=== PATIENT | female | born 1965 | race Caucasian/White ===

== ENCOUNTER 2020-07-25 10:10 | Outpatient (REF) | payer BC, SELFPAY ==
[2020-07-25 11:18] LABS: Estimated Average Glucose 137 mg/dL; Hemoglobin A1c % 6.4 %
[2020-07-25 11:29] LABS: Alanine Aminotransferase 25 U/L (0-31); Albumin Level 4.6 g/dL (3.5-5.0); Alkaline Phosphatase 87 U/L (39-117); Anion Gap 13 (12-20); Aspartate Amino Transferase 19 U/L (5-31); Bilirubin Total 0.6 mg/dL (0.0-1.0); Blood Urea Nitrogen 20 mg/dL (9-16); Calcium 9.8 mg/dL (8.4-10.2); Carbon Dioxide 29 mmol/L (22-29); Chloride 106 mmol/L (96-108); Cholesterol 171 mg/dL; Estimated Glomerular Filt Rate 50; Glucose Fasting 127 mg/dL (60-99); HDL Cholesterol 45 mg/dL; LDL Cholesterol Calculated 97 mg/dl; Potassium 4.5 mmol/l (3.3-5.1); Sodium 143 mmol/L (135-145); Total Protein 7.5 g/dL (6.5-8.0); Triglycerides 146 mg/dL
[2020-07-25 11:41] LABS: Glucose Urine UA NEG (NEG); Leukocyte Esterase Urine 1+ (NEG); Nitrite Urine NEG (NEG); PH 5.5 (5.0-8.0); Specific Gravity - Urine >= 1.030 (1.005-1.025); Urine Blood 1+ (NEG); Urine Ketones NEG (NEG); Urine Protein TRACE MG/DL (NEG-TRACE)
[2020-07-25 11:43] LABS: Appearance Urine HAZY; Color Urine YELLOW
[2020-07-25 11:50] LABS: Thyroid Stimulating Hormone 1.18 mIU/mL (0.32-4.0)
[2020-07-25 11:54] LABS: Calcium Oxalate Crystals Urine 1+ /LPF; Mucus Urine 1+ /LPF; Renal Epithelial Cells Urine 1+ /LPF; Squamous Epithelial Cell Urine 1+ /LPF; WBC Urine TNTC /HPF (0-4)
[2020-07-25 12:00] LABS: Creatinine Urine 319.76 mg/dL; Microalbum/Creatinine Ratio Ur 23.1 ug/mg cr
== END 2020-07-25 10:11 | disposition home or self-care (01) ==
LOC: HO.LAB 10:10
PROVIDERS: PCP Internal Medicine; Visit Provider Internal Medicine
DX: I10 Essential (primary) hypertension (principal); E11.9 Type 2 diabetes mellitus without complications; E78.2 Mixed hyperlipidemia; R31.21 Asymptomatic microscopic hematuria
CPT/HCPCS: 80053; 80061; 81001; 81003; 82043; 83036; 84443

== ENCOUNTER 2020-07-27 10:59 | Day surgery (SDC) | payer BC, SELFPAY ==
--- NOTE | 2020-07-24 11:59 | P.CONAN_ITS ---
Documented by User: Renetta Killian 07/24/20 12:03 HPI - Anesthesia Eval Consult details Narrative: 54yo F for colonoscopy: screening [facility] Past Medical History Medical History (Updated 07/23/20 @ 16:09 by Pat Johns) Colitis Fatty liver Hemangioma Liver cyst Microscopic hematuria Pericardial effusion Right bundle branch block Thyroid nodule Surgical History Surgical History (Updated 07/24/20 @ 12:01 by Renetta Killian) Hx of colonoscopy S/P pericardial window creation Social History Social History Smoking Status: Never smoker Second Hand Smoke Exposure: No Use of substances other than those prescribed or required for medical reasons: No Advance Directives: No Advance Directives Information Provided: Yes Advance Directives on File: No Meds Allergies Allergy/AdvReac Type Severity Reaction Status Date / Time No Known Allergies Allergy Unverified 06/18/20 15:15 Home Medications Medication Instructions Recorded Confirmed Type atorvastatin 1 tab PO DAILY 07/23/20 07/23/20 History diltiazem HCl 1 cap PO DAILY 07/23/20 07/23/20 History metformin 1 tab PO BEDTIME 07/23/20 07/23/20 History olmesartan 1 tab PO DAILY 07/23/20 07/23/20 History Exam Exam Date and Time: July 24, 2020 1159 Pertinent Lab Results Pertinent Lab Results: Laboratory Tests 11/16/18 09/16/19 04/15/20 11:00 08:00 11:20 WBC 5.3 Hgb 15.9 Hct 46.8 Plt Count 250 D Sodium 139 Potassium 4.4 Chloride 104 BUN 20 H Creatinine 1.03 Narrative Narrative: EKG 12/2019 NSR ECHO 10/2018: Nml LV sys func, EF 65-70%, impaired relax, mild MR Documented by User: Peter Velazquez 07/27/20 12:08 [facility] Past Medical History Medical History (Updated 07/23/20 @ 16:09 by Pat Johns) Colitis Fatty liver Hemangioma Liver cyst Microscopic hematuria Pericardial effusion Right bundle branch block Thyroid nodule Surgical History Surgical History (Updated 07/24/20 @ 12:01 by Renetta Killian) Hx of colonoscopy S/P pericardial window creation Social History Social History Smoking Status: Never smoker Second Hand Smoke Exposure: No Use of substances other than those prescribed or required for medical reasons: No Advance Directives: No Advance Directives Information Provided: Yes Advance Directives on File: No Meds Allergies Allergy/AdvReac Type Severity Reaction Status Date / Time No Known Allergies Allergy Unverified 06/18/20 15:15 Home Medications Medication Instructions Recorded Confirmed Type atorvastatin 1 tab PO DAILY 07/23/20 07/23/20 History diltiazem HCl 1 cap PO DAILY 07/23/20 07/23/20 History metformin 1 tab PO BEDTIME 07/23/20 07/23/20 History olmesartan 1 tab PO DAILY 07/23/20 07/23/20 History Exam Airway Mallampati Class: II TM Dist: >3cm Neck ROM: Full Heart: RRR Assessment and Plan Assessment Anesthesia Assessment: Anesthesia Plan Discussed Final Anesthetic Review NPO: Yes ASA Class: III Anesthetic Plan Anesthetic Plan: MAC:
[2020-07-24 14:57] VITALS: BMI 30.8
[2020-07-27 11:24] LABS: Glucose, Whole Blood 105 mg/dL (60-115)
[2020-07-27 11:27] VITALS: BP 147/64; PULSE 77; RESP 16; TEMP 36.4; O2SAT 100
[2020-07-27] MEDS: Lactated Ringers 1,000 ML 100 ML IVCONT (11:42)
[2020-07-27 13:18] VITALS: BP 123/67; PULSE 69; RESP 18; TEMP 36.1; O2SAT 99
--- NOTE | 2020-07-27 13:18 | PM.OP ---
Brief Operative Note Date of procedure: 07/27/20 Pre-op diagnosis: Ulcerative Proctitis, Screening Post-op diagnosis: same Surgeon: Samir Arriola Anesthesia: MAC Estimated blood loss (mL): 6.0 Pathology: other (A. Ascending colon B. Transverse colon C. Descending colon D. Sigmoid colon E. Rectum) Condition: stable Disposition: PACU
[2020-07-27 13:25] VITALS: BP 112/69; PULSE 68; RESP 18; TEMP 36.1; O2SAT 99
--- NOTE | 2020-07-27 13:40 | OP_ITS ---
SURGEON: Samir Arriola MD INDICATIONS: The patient presents for evaluation of underlying history of ulcerative colitis and colorectal cancer screening. Full consent has been obtained from her for this, including risks of bleeding and perforation. PREOPERATIVE DIAGNOSIS: Colorectal cancer screening. POSTOPERATIVE DIAGNOSIS: PROCEDURE PERFORMED: Colonoscopy to cecum and terminal ileum with biopsies. ESTIMATED BLOOD LOSS: COMPLICATIONS: ANESTHESIA: Monitored anesthesia care. ASSISTANTS: SPECIMENS: POSTOPERATIVE DIAGNOSES: Colorectal cancer screening, rule out dysplasia, small internal hemorrhoids. DESCRIPTION OF PROCEDURE: The patient was placed in the left lateral decubitus position. The digital rectal exam revealed no abnormalities. The Olympus video pediatric colonoscope was entered into the rectum and advanced to the cecum with the assistance of abdominal wall pressure. Once in the cecum, I did identify normal-appearing cecal pouch with appendiceal orifice and a normal-appearing ileocecal valve. The terminal ileum was cannulated and appeared normal. Scope was withdrawn back in the colon. The entire cecum and ileocecal valve appeared normal. The scope was then slowly withdrawn assessing all mucosal surfaces carefully. Preparation was excellent. I did not visualize any sign of polyps, colitis, nor angiodysplasia. Random biopsies were obtained in the ascending colon, transverse colon, descending colon, sigmoid colon, and rectum. In the rectum, scope was retroflexed visualizing small internal hemorrhoids, but no other pathology. There was no sign of any active proctitis. The scope was straightened out and withdrawn from the patient. She tolerated procedure well and was returned to the recovery area in stable condition. IMPRESSION: 1. History of ulcerative colitis, rule out dysplasia. 2. Small internal hemorrhoids. PLAN: The results of the biopsy will be checked. I would recommend a repeat colonoscopy in 5 years for further screening. She will otherwise see me on a p.r.n. basis. At this point, she is not on any medication for the ulcerative colitis, but if things flare up, she knows to call me for evaluation. In the past, she had been on mesalamine suppositories with good relief of the proctitis. MD LELE Jerez/KIERAN / [id number]
--- NOTE | 2020-07-27 13:44 | HO.POSTANES ---
Post Anesthesia Evaluation Post Anesthesia Evaluation Vital Signs: Vital Signs Temp Pulse Resp BP Pulse Ox 07/27/20 13:25 97 F 68 18 112/69 99 07/27/20 13:18 96.9 F 69 18 123/67 99 07/27/20 11:27 97.6 F 77 16 147/64 H 100 Anesthesia: Monitored Mental Status: Awake Pain Control: Satisfactory Nausea/Vomiting: None Hydration: Adequate Anesthesia-Related Issues: No Anes. Related Issues
== END 2020-07-27 14:30 | disposition home or self-care (01) ==
PROVIDERS: PCP Internal Medicine; Visit Provider Internal Medicine
PROC: 0DJD8ZZ Inspection of Lower Intestinal Tract, Via Natural or Artificial Opening Endoscopic (ICD-10-PCS; CPT 45378; principal; 2020-07-27 12:00)
DX: Z12.11 Encounter for screening for malignant neoplasm of colon (principal); K62.89 Other specified diseases of anus and rectum; K52.9 Noninfective gastroenteritis and colitis, unspecified; K64.8 Other hemorrhoids; E11.9 Type 2 diabetes mellitus without complications; I10 Essential (primary) hypertension; Z79.84 Long term (current) use of oral hypoglycemic drugs; Z79.899 Other long term (current) drug therapy
CPT/HCPCS: 45380; 82947; 88305

== ENCOUNTER 2020-09-05 09:08 | Outpatient (REF) | payer BC, SELFPAY ==
--- NOTE | 2020-09-05 09:10 | MM_ITS ---
EXAMINATION: MM SCREENING DIGITAL BREAST TOMOSYNTHESIS, BILATERAL CLINICAL INFORMATION: Screening. Asymptomatic. The lifetime risk of breast cancer based on the Tyrer-Cuzick Model is 9.7%. COMPARISON: Mammography: August 31, 2019 and studies dating back to October 30, 2008 TECHNIQUE: Digital breast tomosynthesis is performed in both the craniocaudal and mediolateral oblique views along with computer-aided detection (CAD). Synthesized 2D images are generated from the tomosynthesis. FINDINGS: The breasts are almost entirely fatty (ACR BI-RADS breast composition Category a). There are no significant masses, abnormal calcifications, or other abnormalities. MM/MM tomosynthesis screening BI IMPRESSION: There are no significant changes from prior study. ASSESSMENT: BI-RADS 1: Negative RECOMMENDATION: Routine annual mammography screening. This patient's information was entered into a reminder system with a target due date for their next mammogram.
== END 2020-09-05 09:09 | disposition home or self-care (01) ==
LOC: HO.MAMMO 09:08
PROVIDERS: Visit Provider Internal Medicine
DX: Z12.31 Encounter for screening mammogram for malignant neoplasm of breast (principal)
CPT/HCPCS: 77063; 77067

== ENCOUNTER → 2020-12-31 09:37 | Outpatient (BNVA) | payer BC, SELFPAY | PROVIDERS: PCP Internal Medicine; Visit Provider Internal Medicine Cardiovascular Disease | DX: I30.0 Acute nonspecific idiopathic pericarditis (principal); I10 Essential (primary) hypertension | CPT/HCPCS: 93005 ==

== ENCOUNTER 2021-01-28 09:07 | Outpatient (REF) | payer BC, SELFPAY ==
--- NOTE | ~2021-01-28 | XR_ITS ---
EXAMINATION: XR HIP, LEFT CLINICAL INFORMATION: Pain COMPARISON: None TECHNIQUE: Two views of the left hip. FINDINGS: Bone alignment is normal. No fracture or dislocation is seen. There is moderate arthritis of the left hip joint with joint space narrowing, osteophyte formation and some subchondral cyst formation. Soft tissues are unremarkable. XR/XR hip LT min 2V IMPRESSION: Moderate left hip arthritis.
[2021-01-28 11:35] LABS: Estimated Average Glucose 131 mg/dL; Hemoglobin A1c % 6.2 %
[2021-01-28 12:03] LABS: Creatinine Urine 229.71 mg/dL
[2021-01-28 12:15] LABS: Alanine Aminotransferase 25 U/L (0-31); Albumin Level 4.4 g/dL (3.5-5.0); Alkaline Phosphatase 75 U/L (39-117); Anion Gap 11 (12-20); Aspartate Amino Transferase 19 U/L (5-31); Bilirubin Total 0.5 mg/dL (0.0-1.0); Blood Urea Nitrogen 23 mg/dL (9-16); Calcium 9.4 mg/dL (8.4-10.2); Carbon Dioxide 25 mmol/L (22-29); Chloride 109 mmol/L (96-108); Cholesterol 135 mg/dL; Estimated Glomerular Filt Rate 58; Glucose Fasting 125 mg/dL (60-99); HDL Cholesterol 48 mg/dL; LDL Cholesterol Calculated 76 mg/dl; Potassium 4.2 mmol/L (3.3-5.1); Sodium 141 mmol/L (135-145); Total Protein 7.1 g/dL (6.5-8.0); Triglycerides 59 mg/dL
== END 2021-01-28 09:08 | disposition home or self-care (01) ==
LOC: HO.HMGCX 09:07
PROVIDERS: PCP Internal Medicine; Visit Provider Internal Medicine
DX: Z00.00 Encounter for general adult medical examination without abnormal findings (principal); M25.552 Pain in left hip; E11.9 Type 2 diabetes mellitus without complications; E78.5 Hyperlipidemia, unspecified; I10 Essential (primary) hypertension
CPT/HCPCS: 36415; 73502; 80053; 80061; 82043; 83036; 87086

== ENCOUNTER 2021-11-24 08:10 | Outpatient (REF) | payer OTHER, SELFPAY ==
[2021-11-24 11:46] LABS: Alanine Aminotransferase 27 U/L (0-31); Albumin Level 4.4 g/dL (3.5-5.0); Alkaline Phosphatase 70 U/L (39-117); Anion Gap 13 (12-20); Aspartate Amino Transferase 18 U/L (5-31); Bilirubin Total 0.5 mg/dL (0.0-1.0); Blood Urea Nitrogen 17 mg/dL (9-16); Carbon Dioxide 24 mmol/L (22-29); Chloride 107 mmol/L (96-108); Cholesterol 166 mg/dL; Estimated Glomerular Filt Rate 54; Glucose Fasting 130 mg/dL (60-99); HDL Cholesterol 50 mg/dL; LDL Cholesterol Calculated 88 mg/dl; Potassium 4.5 mmol/L (3.3-5.1); Sodium 139 mmol/L (135-145); Total Protein 7.3 g/dL (6.5-8.0); Triglycerides 140 mg/dL
[2021-11-24 12:11] LABS: Creatinine Urine 146.11 mg/dL
[2021-11-24 12:16] LABS: Estimated Average Glucose 148 mg/dL; Hemoglobin A1c % 6.8 %
== END 2021-11-24 08:11 | disposition home or self-care (01) ==
LOC: HO.HMGCLDS 08:10
PROVIDERS: Visit Provider Internal Medicine
DX: E11.9 Type 2 diabetes mellitus without complications (principal); E78.5 Hyperlipidemia, unspecified; I10 Essential (primary) hypertension
CPT/HCPCS: 36415; 80053; 80061; 82043; 83036

== ENCOUNTER 2021-12-02 15:01 | Outpatient (REF) | payer OTHER, SELFPAY ==
--- NOTE | ~2021-12-02 | MM_ITS ---
EXAMINATION: MM SCREENING DIGITAL BREAST TOMOSYNTHESIS, BILATERAL CLINICAL INFORMATION: Screening. Asymptomatic. The lifetime risk of breast cancer based on the Tyrer-Cuzick Model is 9%. COMPARISON: Mammography: 09/05/2020, 08/31/2019, 07/25/2018, 07/01/2017, 10/30/2008 TECHNIQUE: Digital breast tomosynthesis is performed in both the craniocaudal and mediolateral oblique views along with computer-aided detection (CAD). Synthesized 2D images are generated from the tomosynthesis. FINDINGS: There are scattered areas of fibroglandular density (ACR BI-RADS breast composition Category b). Breast tissue composition borders on predominantly fatty. Background stromal and fibroglandular densities right breast are stable. There is subtle nodular asymmetry anterior to mid 2:30 o'clock left breast just under 5 mm more conspicuous when compared with prior study. Patient will be recalled for additional imaging. Neither breast shows abnormal calcifications. No architectural abnormality. The axilla and skin contours are unremarkable. MM/MM tomosynthesis screening BI IMPRESSION: 1. Left: Small subtle nodular asymmetry to 30 o'clock position just under 5 mm. 2. Right: No mammographic evidence of malignancy. ASSESSMENT: BI-RADS 0: Incomplete - Need Additional Imaging Evaluation RECOMMENDATION: 1. Additional views of the left breast (spot CC, spot ML). 2. Targeted ultrasound if warranted after review of the additional views. 3. Radiology department staff will contact the patient for additional imaging. This patient's information was entered into a reminder system with a target due date for their next mammogram.
== END 2021-12-02 15:02 | disposition home or self-care (01) ==
LOC: HO.MAMMO 15:01
PROVIDERS: Visit Provider Internal Medicine
DX: Z12.31 Encounter for screening mammogram for malignant neoplasm of breast (principal)
CPT/HCPCS: 77063; 77067

== ENCOUNTER 2021-12-16 08:50 | Outpatient (REF) | payer OTHER, SELFPAY ==
--- NOTE | ~2021-12-16 | XR_ITS ---
EXAMINATION: XR pelvis 1-2V CLINICAL INFORMATION: Reason for Exam M25.559 - Pain in unspecified hip COMPARISON: Hip radiographs 01/28/2021 TECHNIQUE: One view of the pelvis XR/XR pelvis 1-2V FINDINGS/IMPRESSION: No acute fracture or dislocation. Moderate degenerative changes of the left hip with loss of joint space and degenerative spurring similar to prior. Right hip joint space is maintained. Ossified phleboliths in the pelvis. Soft tissues are unremarkable.
== END 2021-12-16 08:51 | disposition home or self-care (01) ==
LOC: HO.HOSX 08:50
PROVIDERS: Visit Provider Orthopaedic Surgery
DX: M16.12 Unilateral primary osteoarthritis, left hip (principal); Z79.899 Other long term (current) drug therapy
CPT/HCPCS: 72170

== ENCOUNTER 2021-12-21 14:48 | Outpatient (REF) | payer OTHER, SELFPAY ==
--- NOTE | ~2021-12-21 | US_ITS ---
EXAMINATION: US DIAGNOSTIC ULTRASOUND BREAST, LEFT CLINICAL INFORMATION: 2 small adjacent nodules lateral aspect left breast. COMPARISON: Mammography of same day and dating back to July 01, 2017. TECHNIQUE: Ultrasound of the breast is performed with real-time devine scale imaging and color Doppler. FINDINGS: Targeted ultrasound of the left breast demonstrates at the 3:00 position approximately 4 cm from nipple 2 directly adjacent and contiguous well-circumscribed avascular structures with smooth back orantes and through sound transmission likely representing small cysts. These correspond in size and location to the mammographic finding. Results are discussed with the patient at time of visit. US/US breast LT limited IMPRESSION: Circumscribed densities about the lateral aspect of the left breast represent cysts on ultrasound. ASSESSMENT: BI-RADS 2: Benign RECOMMENDATION: Routine annual mammography screening due in 12 months. .
--- NOTE | ~2021-12-21 | MM_ITS ---
EXAMINATION: MM DIAGNOSTIC DIGITAL BREAST TOMOSYNTHESIS, LEFT US TARGETED LEFT BREAST ULTRASOUND CLINICAL INFORMATION: Subtle nodular density lateral aspect of the left breast. COMPARISON: Mammography: 12/02/2021 and studies dating back to 07/01/2017. TECHNIQUE: Digital breast tomosynthesis is performed. 2D images are generated from the tomosynthesis. The following views are obtained: Spot compression craniocaudal and 90 degree mediolateral. FINDINGS: There are scattered areas of fibroglandular density (ACR BI-RADS breast composition Category b). Supplementary films demonstrate 2 adjacent well-circumscribed densities one measuring approximately 5 mm in diameter and the other approximately 3 mm in diameter. No spiculated masses or associated microcalcifications are seen. Targeted ultrasound of the left breast demonstrates at the 3 o'clock position approximately 4 cm from nipple 2 directly adjacent and contiguous well-circumscribed avascular structures with smooth back orantes and increased through sound transmission likely representing small cysts. These correspond in size and location to the mammographic finding. Results are discussed with the patient at time of visit. MM/MM tomosynthesis added views L IMPRESSION: Circumscribed densities about the lateral aspect of the left breast represent cysts on ultrasound. ASSESSMENT: BI-RADS 2: Benign. RECOMMENDATION: Routine annual mammography screening due in 12 months. This patient's information was entered into a reminder system with a target due date for their next mammogram.
== END 2021-12-21 14:49 | disposition home or self-care (01) ==
LOC: HO.MAMMO 14:48
PROVIDERS: Visit Provider Internal Medicine
DX: N64.89 Other specified disorders of breast (principal)
CPT/HCPCS: 76642; 77061; 77065

== ENCOUNTER 2022-02-17 09:00 | Outpatient (RCR) | payer OTHER, SELFPAY ==
--- NOTE | 2022-01-26 09:09 | MHC.PT.EP ---
[facility] [place] Office [place] Office [place] Office [address] Aileen Narayanan [address] [phone] F: [phone] F: [phone] F: [phone] F: [phone] Physical Therapy Plan of Care Date of Evaluation: Date of Surgery: Diagnosis: OA L hip Assessment: 56 y/o F referred to PT with L hip OA. 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 S/s consistent with hip OA secondary to decreased hip A/PROM (especially hip IR, extension, and flexion), decreased hip strength, decreased muscle length of hip flexors/HS, increased pain, altered SI mechanics, and impaired gait pattern. Recommend PT 2x/week for 5 weeks to address impairments, implement HEP, and optimize functional mobility. Frequency and Duration: The patient will be seen 2x/week for 5 weeks Short Term Goals: 3 weeks 1. I with HEP 2. Pt will be able to perform SLR 3x10 without shakiness and pain < 3/10 3. Pt will improve L hip IR by 5 * Correction Goals: 5 weeks 1. I with HEP an d self management of sx 2. Pt will be able to walk > 25 min without limp and pain < 3/10 Treatment Plan: Modalities to reduce pain, spasms and effusion. Manual therapy to restore motion and function. Therapeutic exercise to improve strength and flexibility. Neuromuscular re-education for posture and balance. Therapeutic activities to return to functional activities of daily living. Electronically signed by: Jody Frazier PT Please sign and return to therapist. Thank you for your referral.
--- NOTE | 2022-04-20 08:33 | MHC.PT.DC ---
[facility] [place] Office [place] Office [place] Office [address] Aileen Narayanan [address] [phone] F: [phone] F: [phone] F: [phone] F: [phone] Physical Therapy Discharge Report Diagnosis: OA L hip Date of Surgery: Date of Evaluation: 01/26/22 Date of Discharge: 04/20/22 Treatments to Date: 5 Cancellations to Date: 0 No Shows to Date: 0 Discharge Status: Independent with HEP Discharge Summary: Pt did not f/u with final visits. At time of last attended visit, she continued to have weaker L gluteal activation, altered gait mechanics, and pain. She was I with HEP. She is d/c at this time secondary to not f/u with further visits. Electronically signed by: Jody Frazier PT Please sign and return to therapist. Thank you for your referral.
== END 2022-04-20 08:33 | disposition home or self-care (01) ==
LOC: HO.PT 09:00
PROVIDERS: PCP Internal Medicine; Visit Provider Orthopaedic Surgery
DX: M16.12 Unilateral primary osteoarthritis, left hip (principal)
CPT/HCPCS: 97110; 97140; 97161; 97530

== ENCOUNTER → 2022-02-17 10:14 | Outpatient (BNVA) | payer OTHER, SELFPAY | PROVIDERS: PCP Internal Medicine; Visit Provider Orthopaedic Surgery | DX: M16.12 Unilateral primary osteoarthritis, left hip (principal) ==

== ENCOUNTER → 2022-03-09 14:51 | Outpatient (BNVA) | payer OTHER, SELFPAY | PROVIDERS: PCP Internal Medicine; Visit Provider Internal Medicine Cardiovascular Disease | DX: I30.0 Acute nonspecific idiopathic pericarditis (principal); I10 Essential (primary) hypertension | CPT/HCPCS: 93005 ==

== ENCOUNTER 2022-04-18 05:57 | Outpatient (REF) | payer OTHER, SELFPAY ==
[2022-04-18 07:26] LABS: Hematocrit 38.5 % (37.0-47.0); Hemoglobin 12.6 g/dl (12.0-16.0); Mean Corpuscular HGB Conc 32.7 g/dl (31.0-35.0); Mean Corpuscular Hemoglobin 31.2 pg (27.0-33.0); Mean Corpuscular Volume 95.3 fL (80.0-98.0); Mean Platelet Volume 10.6 fL (9.4-12.3); Platelet Count 293 X10*3/uL (160-400); Red Blood Count 4.04 X10*6/uL (4.20-5.50); Red Cell Distribution Width 12.6 % (11.0-16.0); White Blood Count 7.9 X10*3/uL (4.8-10.8)
[2022-04-18 07:41] LABS: Estimated Average Glucose 131 mg/dL; Hemoglobin A1C 149.3436 umol/L; Hemoglobin A1c % 6.2 %
[2022-04-18 07:51] LABS: Alanine Aminotransferase 32 U/L (0-31); Albumin Level 4.5 g/dL (3.5-5.0); Alkaline Phosphatase 62 U/L (39-117); Anion Gap 13 (12-20); Aspartate Amino Transferase 23 U/L (5-31); Bilirubin Total 0.3 mg/dL (0.0-1.0); Blood Urea Nitrogen 19 mg/dL (9-16); Carbon Dioxide 25 mmol/L (22-29); Chloride 104 mmol/L (96-108); Cholesterol 162 mg/dL; Estimated Glomerular Filt Rate > 60; Glucose Fasting 87 mg/dL (60-99); HDL Cholesterol 42 mg/dL; LDL Cholesterol Calculated 87 mg/dl; Potassium 4.4 mmol/L (3.3-5.1); Sodium 138 mmol/L (135-145); Total Protein 7.1 g/dL (6.5-8.0); Triglycerides 166 mg/dL
[2022-04-18 08:17] LABS: TSH reflex Free T4 2.65 uIU/mL (0.32-4.0)
[2022-04-18 10:21] LABS: Creatinine Urine 25.72 mg/dL; Microalbum/Creatinine Ratio Ur 38.8 ug/mg cr
[2022-04-20 14:18] LABS: CRP High Sensitivity 1.5 mg/L
== END 2022-04-18 05:58 | disposition home or self-care (01) ==
LOC: HO.LAB 05:57
PROVIDERS: Absent Provider Internal Medicine Cardiovascular Disease; PCP Internal Medicine; Visit Provider Internal Medicine
DX: Z00.00 Encounter for general adult medical examination without abnormal findings (principal); E78.5 Hyperlipidemia, unspecified; I10 Essential (primary) hypertension; E11.9 Type 2 diabetes mellitus without complications
CPT/HCPCS: 36415; 80053; 80061; 82043; 83036; 84443; 85027; 86141

== ENCOUNTER 2022-07-13 06:16 | Outpatient (REF) | payer OTHER, SELFPAY ==
[2022-07-13 11:30] LABS: Estimated Average Glucose 140 mg/dL; Hemoglobin A1c % 6.5 %
[2022-07-13 11:49] LABS: Alanine Aminotransferase 29 U/L (0-31); Albumin Level 4.4 g/dL (3.5-5.0); Alkaline Phosphatase 75 U/L (39-117); Anion Gap 15 (12-20); Aspartate Amino Transferase 21 U/L (5-31); Bilirubin Total 0.4 mg/dL (0.0-1.0); Blood Urea Nitrogen 19 mg/dL (9-16); Calcium 9.7 mg/dL (8.4-10.2); Carbon Dioxide 25 mmol/L (22-29); Chloride 107 mmol/L (96-108); Cholesterol 162 mg/dL; Estimated Glomerular Filt Rate 58; Glucose Fasting 103 mg/dL (60-99); HDL Cholesterol 44 mg/dL; LDL Cholesterol Calculated 73 mg/dl; Potassium 4.4 mmol/L (3.3-5.1); Sodium 143 mmol/L (135-145); Total Protein 7.1 g/dL (6.5-8.0); Triglycerides 227 mg/dL
[2022-07-13 12:08] LABS: Creatinine Urine 127.63 mg/dL; Microalbum/Creatinine Ratio Ur 10.1 ug/mg cr
== END 2022-07-13 06:17 | disposition home or self-care (01) ==
LOC: HO.HMGCLDS 06:16
PROVIDERS: PCP Internal Medicine; Visit Provider Internal Medicine
DX: I10 Essential (primary) hypertension (principal); E11.9 Type 2 diabetes mellitus without complications; E78.5 Hyperlipidemia, unspecified
CPT/HCPCS: 36415; 80053; 80061; 82043; 83036

== ENCOUNTER 2022-11-18 06:04 | Outpatient (REF) | payer OTHER, SELFPAY ==
[2022-11-18 12:14] LABS: Estimated Average Glucose 137 mg/dL; Hemoglobin A1c % 6.4 %; Total Hemoglobin (HGBA1C) 3539.0667 umol/L
[2022-11-18 12:37] LABS: Creatinine Urine 175.61 mg/dL; Microalbum/Creatinine Ratio Ur 10.8 ug/mg cr
[2022-11-18 12:44] LABS: Alanine Aminotransferase 24 U/L (0-31); Albumin Level 4.1 g/dL (3.5-5.0); Alkaline Phosphatase 61 U/L (39-117); Anion Gap 15 (12-20); Aspartate Amino Transferase 19 U/L (5-31); Bilirubin Total 0.4 mg/dL (0.0-1.0); Blood Urea Nitrogen 22 mg/dL (9-16); Calcium 9.6 mg/dL (8.4-10.2); Carbon Dioxide 24 mmol/L (22-29); Chloride 108 mmol/L (96-108); Cholesterol 143 mg/dL; Estimated Glomerular Filt Rate > 60; Glucose Fasting 86 mg/dL (60-99); HDL Cholesterol 47 mg/dL; LDL Cholesterol Calculated 74 mg/dl; Potassium 4.6 mmol/L (3.3-5.1); Sodium 142 mmol/L (135-145); Total Protein 6.6 g/dL (6.5-8.0); Triglycerides 113 mg/dL
== END 2022-11-18 06:05 | disposition home or self-care (01) ==
LOC: HO.HMGCLDS 06:04
PROVIDERS: PCP Internal Medicine; Visit Provider Internal Medicine
DX: E11.9 Type 2 diabetes mellitus without complications (principal); I10 Essential (primary) hypertension; E78.5 Hyperlipidemia, unspecified
CPT/HCPCS: 36415; 80053; 80061; 82043; 83036

== ENCOUNTER 2022-12-12 07:14 | Outpatient (REF) | payer OTHER, SELFPAY ==
--- NOTE | ~2022-12-12 | MM_ITS ---
EXAMINATION: MM SCREENING DIGITAL BREAST TOMOSYNTHESIS, BILATERAL CLINICAL INFORMATION: Screening. Asymptomatic. The lifetime risk of breast cancer based on the Tyrer-Cuzick Model is 9%. COMPARISON: Mammography: 12/21/2021, 12/02/2021, 09/05/2020, 08/31/2019; left breast ultrasound 12/21/2021. TECHNIQUE: Digital breast tomosynthesis is performed in both the craniocaudal and mediolateral oblique views along with computer-aided detection (CAD). Synthesized 2D images are generated from the tomosynthesis. FINDINGS: There are scattered areas of fibroglandular density (ACR BI-RADS breast composition Category b). Breast tissue composition borders on predominantly fatty. Background stromal and fibroglandular densities are similar to prior studies. There is small nodularity anterior lateral left breast again seen consistent with cysts on targeted ultrasound. There is no developing density or architectural abnormality. No abnormal calcifications. The axilla and skin contours are unremarkable. MM/MM tomosynthesis screening BI IMPRESSION: No mammographic evidence of malignancy. ASSESSMENT: BI-RADS 2: Benign RECOMMENDATION: Routine annual mammography screening. This patient's information was entered into a reminder system with a target due date for their next mammogram.
== END 2022-12-12 07:15 | disposition home or self-care (01) ==
LOC: HO.MAMMO 07:14
PROVIDERS: Visit Provider Internal Medicine
DX: Z12.31 Encounter for screening mammogram for malignant neoplasm of breast (principal)
CPT/HCPCS: 77063; 77067

== ENCOUNTER → 2023-04-05 10:04 | Outpatient (BNVA) | payer OTHER, SELFPAY | PROVIDERS: Visit Provider Internal Medicine Cardiovascular Disease | DX: I30.0 Acute nonspecific idiopathic pericarditis (principal) | CPT/HCPCS: 93005 ==

== ENCOUNTER 2023-06-19 06:06 | Outpatient (REF) | payer OTHER, SELFPAY ==
[2023-06-19 11:15] LABS: MANUAL DIFF FLAG NO
[2023-06-19 11:28] LABS: Basophils Absolute Auto 0.1 X10*3/uL (0.0-0.2); Basophils Percent Auto 0.7 % (0-2); Eosinophils Absolute Auto 0.2 X10*3/uL (0.0-0.4); Eosinophils Percent Auto 3.3 % (0-4); Hematocrit 41.7 % (37.0-47.0); Hemoglobin 13.3 g/dl (12.0-16.0); Imm Gran Abs Auto 0.02 X10*3/uL (0.00-0.03); Imm Gran Pct Auto 0.3 % (0.0-0.4); Lymphocytes Absolute Auto 3.1 X10*3/uL (1.2-4.9); Lymphocytes Percent Auto 42.8 % (20-40); Mean Corpuscular HGB Conc 31.9 g/dl (31.0-35.0); Mean Corpuscular Hemoglobin 31.1 pg (27.0-33.0); Mean Corpuscular Volume 97.7 fL (80.0-98.0); Mean Platelet Volume 11.1 fL (9.4-12.3); Monocytes Absolute Auto 0.6 X10*3/uL (0.1-1.2); Monocytes Percent Auto 7.8 % (2-11); Neutrophils Absolute Auto 3.3 x10*3/uL (2.0-8.3); Neutrophils Percent Auto 45.1 % (45-73); Platelet Count 331 X10*3/uL (160-400); Red Blood Count 4.27 X10*6/uL (4.20-5.50); Red Cell Distribution Width 12.5 % (11.0-16.0); White Blood Count 7.3 X10*3/uL (4.8-10.8)
[2023-06-19 11:44] LABS: Estimated Average Glucose 128 mg/dL; Hemoglobin A1c % 6.1 % (<6.0)
[2023-06-19 11:48] LABS: Alanine Aminotransferase 26 U/L (0-31); Albumin Level 4.3 g/dL (3.5-5.0); Alkaline Phosphatase 57 U/L (39-117); Anion Gap 10 (12-20); Aspartate Amino Transferase 22 U/L (5-31); Bilirubin Total 0.3 mg/dL (0.0-1.0); Blood Urea Nitrogen 19 mg/dL (9-16); Calcium 10.3 mg/dL (8.4-10.2); Carbon Dioxide 26 mmol/L (22-29); Chloride 108 mmol/L (96-108); Cholesterol 135 mg/dL (<200); Estimated Glomerular Filt Rate > 60; Glucose Fasting 101 mg/dL (60-99); HDL Cholesterol 45 mg/dL (>40); LDL Cholesterol Calculated 70 mg/dL (<100); Potassium 4.1 mmol/L (3.3-5.1); Sodium 140 mmol/L (135-145); Triglycerides 104 mg/dL (<150)
[2023-06-19 12:51] LABS: Creatinine Urine 135.04 mg/dL; Microalbum/Creatinine Ratio Ur 16.2 ug/mg cr (<30)
== END 2023-06-19 06:07 | disposition home or self-care (01) ==
LOC: HO.HMGCLDS 06:06
PROVIDERS: PCP Internal Medicine; Visit Provider Internal Medicine
DX: E78.5 Hyperlipidemia, unspecified (principal); I10 Essential (primary) hypertension; E11.9 Type 2 diabetes mellitus without complications
CPT/HCPCS: 36415; 80053; 80061; 82043; 82570; 83036; 85025

== ENCOUNTER 2023-06-22 12:52 | Outpatient (AMB) | payer OTHER, SELFPAY ==
[2023-06-22 13:30] VITALS: BP 135/80; PULSE 72; O2SAT 97; BMI 29.5
--- NOTE | 2023-06-22 13:30 | MHC.PC.OV ---
Vital Signs 06/22/23 13:30 Height 5 ft Weight 151 lb BMI 29.5 BP 135/80 Blood Pressure Location Lt brachial Position Sitting Pulse 72 Pulse Source Pulse Oximeter Pulse Oximetry (%) 97 Oxygen Delivery Method Room Air Intake Visit Reasons: annual PE Intake Note: Pt is here today for PE. Pt is due for pap. Allergies No Known Allergies Allergy (Verified 06/22/23 13:35) Medication List - Last Reconciled 06/22/23 by Misa Clemons MD atorvastatin 40 mg PO DAILY blood sugar diagnostic (OneTouch Ultra Test strips) 1 strip miscellaneous DAILY blood-glucose meter (Webupouch Ultra2 Meter) QD lancets (Webupouch Delica Lancets) Daily to test blood sugar metformin 500 mg PO BID olmesartan 10 mg (2 x 5 mg) PO DAILY 90 days Tobacco use date assessed: 06/22/23 Dental Screening Dental Screen Date: 06/22/23 Did you have a dental visit in the last 12 months?: Yes Did you have a dental problem in the last 6 months where you did not have access to dental care?: No Was dental information given to patient?: Patient has dentist HPI annual PE HPI Details [facility] Medical History Hx of mammogram Hip pain, left Recurrent idiopathic pericarditis Annual physical exam Hyperlipemia HTN (hypertension) DM (diabetes mellitus) Liver cyst Hemangioma Fatty liver Colitis Microscopic hematuria Thyroid nodule Right bundle branch block Pericardial effusion Surgical History S/P pericardial window creation Hx of colonoscopy Family History Father HTN (hypertension) Mother HTN (hypertension) Sister HTN (hypertension) Pericarditis Maternal Grandfather Cerebral aneurysm Maternal Grandmother Stroke Paternal Grandfather Emphysema, unspecified Paternal Grandmother Diabetes mellitus Brother S/P triple vessel bypass Brother No problems noted. 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 Members Other:: works as a [employer], , 3 sons Housing: House Patient Tobacco Use Status: Never used Tobacco e-Cigarette/Vaping Use: Never Used Second Hand Smoke Exposure: No service: No Current occupational status: employed Cognitive needs: No Hearing needs: No Vision needs: Yes Questionnaire Thrive Questionnaire Date Thrive assessed: 11/21/22 I am a: Patient What is your living situation today?: I have a steady place to live Within the past 12 months, did the food you bought not last and you didn't have the money to get more?: Never true Within the past 12 months, did you worry whether your food would run out before you got money to buy more?: Never true AUDIT C Alcohol Use Questionnaire (AUDIT-C) 1. How often do you have a drink containing alcohol?: Never Total Score: 0 JOSE J-7 AMB Questionnaire JOSE J-7 Date JOSE J - 7 assessed: 11/21/22 Feeling nervous, anxious, or on edge: 0 = Not at all Not being able to stop or control worryin = Not at all Worrying too much about different things: 0 = Not at all Trouble relaxin = Not at all Being so restless that it is hard to sit still: 0 = Not at all Becoming easily annoyed or irritable: 0 = Not at all Feeling afraid as if something awful might happen: 0 = Not at all Total JOSE J-7 score (0-4 normal; 5-9 mild; 10-14 moderate; 15-21 severe): 0 Source: Developed by Drs. Samir Lemons, Debora Collins, Michele Alexis and colleagues, with an educational tamara from [employer] Review of Systems Const All systems reviewed & are unremarkable except as noted in HPI and below Reports no additional complaints Eyes Reports no additional complaints ENT Reports no additional complaints Card Reports no additional complaints Resp Reports no additional complaints GI Reports no additional complaints Reports no additional complaints Physical exam (Primary Care) Vital Signs: Last Vital Signs Pulse 72 06/22/23 13:30 BP 124/80 06/22/23 13:30 Pulse Ox 97 06/22/23 13:30 Oxygen Delivery Method Room Air 06/22/23 13:30 BMI result Body Mass Index 29.5 Tobacco/Smoking Status: Tobacco use Status Tobacco use date assessed 06/22/23 06/22/23 13:36 Patient Tobacco Use Status Never used Tobacco 06/22/23 13:36 e-Cigarette/Vaping Use Never Used 06/22/23 13:36 Thrive Assessment: Date of Thrive Assessment Date Thrive assessed 11/21/22 06/22/23 13:36 Const General: no acute distress HENMT Head: Yes normal to inspection Ears: hearing grossly normal bilaterally Face and sinus: Yes normal facial exam Teeth and gingiva: dentition normal Eyes General: appearance normal, both eyes and all related structures Resp Effort & Inspection: normal respiratory effort Auscultation: clear to auscultation bilaterally Cardio Rhythm: regular rhythm Heart sounds: S1 normal heart sound present and S2 normal heart sound present GI Inspection: Yes normal to inspection Palpation (GI): Soft to palpation Percussion: Yes normal to percussion Auscultation: normal bowel sounds External Female Exam: normal external appearance Speculum Exam - Vagina: normal appearance of the vagina Speculum Exam - Cervix: normal appearance of the cervix Bimanual exam- vagina & uterus: normal bimanual exam Assessment and Plan Assessment & Plan (1) Annual physical exam: Code(s): Z00.00 - Encounter for general adult medical examination without abnormal findings Plan: Well-balanced diet and regular physical activity weight loss discussed with the patient. She is up-to-date with the mammogram and colonoscopy. Pap smear was done today (2) HTN (hypertension): Code(s): I10 - Essential (primary) hypertension Plan: Increase olmesartan to 10 mg a day, check basic metabolic panel in 2 weeks and blood pressure within nurse visit in 1 month (3) Hyperlipemia: Code(s): E78.5 - Hyperlipidemia, unspecified Plan: Continue statin (4) DM (diabetes mellitus): Code(s): E11.9 - Type 2 diabetes mellitus without complications Plan: A1c is down to 6.4 continue ADA diet increase physical activity weight loss discussed with the patient she will continue metformin and will return in 4 months with a fasting labs before Orders: Orders Pap Smear Today Z00.00 - Encounter for general adult medical examination without abnormal findings Hemoglobin A1c 4 Months E11.9 - Type 2 diabetes mellitus without complications, E78.5 - Hyperlipidemia, unspecified, I10 - Essential (primary) hypertension, Z00.00 - Encounter for general adult medical examination without abnormal findings Magnesium 2 Weeks I10 - Essential (primary) hypertension Basic Metabolic Panel 2 Weeks I10 - Essential (primary) hypertension Comprehensive [place]. Panel Fast 4 Months E11.9 - Type 2 diabetes mellitus without complications, E78.5 - Hyperlipidemia, unspecified, I10 - Essential (primary) hypertension, Z00.00 - Encounter for general adult medical examination without abnormal findings Lipid Panel 4 Months E11.9 - Type 2 diabetes mellitus without complications, E78.5 - Hyperlipidemia, unspecified, I10 - Essential (primary) hypertension, Z00.00 - Encounter for general adult medical examination without abnormal findings Complete Blood Count Auto Diff 4 Months E11.9 - Type 2 diabetes mellitus without complications, E78.5 - Hyperlipidemia, unspecified, I10 - Essential (primary) hypertension, Z00.00 - Encounter for general adult medical examination without abnormal findings Microalbumin 24 hr Urine 4 Months E11.9 - Type 2 diabetes mellitus without complications, E78.5 - Hyperlipidemia, unspecified, I10 - Essential (primary) hypertension, Z00.00 - Encounter for general adult medical examination without abnormal findings TSH reflex Free T4 4 Months E11.9 - Type 2 diabetes mellitus without complications, E78.5 - Hyperlipidemia, unspecified, I10 - Essential (primary) hypertension, Z00.00 - Encounter for general adult medical examination without abnormal findings Medications: Changed From olmesartan 5 mg PO DAILY 90 days 90 tabs 3RF To olmesartan 10 mg (2 x 5 mg) PO DAILY 90 days 180 tabs 3RF Coding Level of Care Code Est Pt Prev Care 40-64y(82948) Diagnoses Annual physical exam Z00.00 HTN (hypertension) I10 Hyperlipemia E78.5 DM (diabetes mellitus) E11.9
== END 2023-06-22 14:13 | disposition home or self-care (01) ==
PROVIDERS: Visit Provider Internal Medicine
DX: Z00.00 Encounter for general adult medical examination without abnormal findings (principal); I10 Essential (primary) hypertension; E78.5 Hyperlipidemia, unspecified; E11.9 Type 2 diabetes mellitus without complications
CPT/HCPCS: 99396

== ENCOUNTER 2023-06-22 14:24 | Outpatient (REF) | payer OTHER, SELFPAY ==
[2023-06-27 21:08] LABS: HPV mRNA E6/E7 Not Detected (Not Detected)
== END 2023-06-22 14:25 | disposition home or self-care (01) ==
LOC: HO.LNP 14:24
PROVIDERS: Visit Provider Internal Medicine
DX: R87.610 Atypical squamous cells of undetermined significance on cytologic smear of cervix (ASC-US) (principal)
CPT/HCPCS: 87624; 88142

== ENCOUNTER 2023-07-12 11:34 | Outpatient (REF) | payer OTHER, SELFPAY | END 2023-07-12 11:35 | disposition home or self-care (01) | LOC: HO.HMGCLDS 11:34 | PROVIDERS: PCP Internal Medicine; Visit Provider Internal Medicine | DX: I10 Essential (primary) hypertension (principal) | CPT/HCPCS: 36415; 80048; 83735 ==

== ENCOUNTER 2023-10-19 06:01 | Outpatient (REF) | payer OTHER, SELFPAY ==
[2023-10-19 12:03] LABS: MANUAL DIFF FLAG NO
[2023-10-19 12:18] LABS: Estimated Average Glucose 128 mg/dL; Hemoglobin A1C 151.2966 umol/L; Hemoglobin A1c % 6.1 % (<6.0)
[2023-10-19 12:20] LABS: Basophils Percent Auto 0.5 % (0-2); Eosinophils Absolute Auto 0.2 X10*3/uL (0.0-0.4); Eosinophils Percent Auto 2.7 % (0-4); Hematocrit 42.8 % (37.0-47.0); Imm Gran Abs Auto 0.02 X10*3/uL (0.00-0.03); Imm Gran Pct Auto 0.3 % (0.0-0.4); Lymphocytes Absolute Auto 2.9 X10*3/uL (1.2-4.9); Lymphocytes Percent Auto 39.6 % (20-40); Mean Corpuscular HGB Conc 32.7 g/dl (31.0-35.0); Mean Corpuscular Hemoglobin 31.3 pg (27.0-33.0); Mean Corpuscular Volume 95.5 fL (80.0-98.0); Mean Platelet Volume 10.6 fL (9.4-12.3); Monocytes Absolute Auto 0.5 X10*3/uL (0.1-1.2); Monocytes Percent Auto 6.5 % (2-11); Neutrophils Absolute Auto 3.7 x10*3/uL (2.0-8.3); Neutrophils Percent Auto 50.4 % (45-73); Platelet Count 338 X10*3/uL (160-400); Red Blood Count 4.48 X10*6/uL (4.20-5.50); Red Cell Distribution Width 12.8 % (11.0-16.0); White Blood Count 7.4 X10*3/uL (4.8-10.8)
[2023-10-19 12:50] LABS: Alanine Aminotransferase 33 U/L (0-31); Albumin Level 4.3 g/dL (3.5-5.0); Alkaline Phosphatase 61 U/L (39-117); Anion Gap 12 (12-20); Aspartate Amino Transferase 20 U/L (5-31); Bilirubin Total 0.2 mg/dL (0.0-1.0); Blood Urea Nitrogen 16 mg/dL (9-16); Calcium 9.7 mg/dL (8.4-10.2); Carbon Dioxide 27 mmol/L (22-29); Chloride 109 mmol/L (96-108); Cholesterol 146 mg/dL (<200); Estimated Glomerular Filt Rate > 60; Glucose Fasting 130 mg/dL (60-99); HDL Cholesterol 42 mg/dL (>40); LDL Cholesterol Calculated 77 mg/dL (<100); Potassium 4.1 mmol/L (3.3-5.1); Sodium 144 mmol/L (135-145); TSH reflex Free T4 1.48 uIU/mL (0.32-4.0); Total Protein 7.2 g/dL (6.5-8.0); Triglycerides 139 mg/dL (<150)
== END 2023-10-19 06:02 | disposition home or self-care (01) ==
LOC: HO.HMGCLDS 06:01
PROVIDERS: PCP Internal Medicine; Visit Provider Internal Medicine
DX: Z00.00 Encounter for general adult medical examination without abnormal findings (principal); I10 Essential (primary) hypertension; E11.9 Type 2 diabetes mellitus without complications; E78.5 Hyperlipidemia, unspecified
CPT/HCPCS: 36415; 80053; 80061; 83036; 84443; 85025

== ENCOUNTER 2023-10-20 06:30 | Outpatient (REF) | payer OTHER, SELFPAY ==
[2023-10-20 15:27] LABS: Total Volume 24 Hour Urine 1500 mL
[2023-10-20 15:40] LABS: Microalbumin Excretion Rate Ur 14 mg/24Hr
== END 2023-10-20 06:31 | disposition home or self-care (01) ==
LOC: HO.HMGCLNP 06:30
PROVIDERS: PCP Internal Medicine; Visit Provider Internal Medicine
DX: Z00.00 Encounter for general adult medical examination without abnormal findings (principal); I10 Essential (primary) hypertension; E11.9 Type 2 diabetes mellitus without complications; E78.5 Hyperlipidemia, unspecified
CPT/HCPCS: 82043

== ENCOUNTER 2023-10-23 12:21 | Outpatient (AMB) | payer OTHER, SELFPAY ==
[2023-10-23 12:37] VITALS: BP 135/80; PULSE 83; O2SAT 95; BMI 29.7
--- NOTE | 2023-10-23 12:37 | A.OFFPC_ITS ---
Vital Signs 10/23/23 12:37 Height 5 ft Weight 152 lb BMI 29.7 BP 135/80 Blood Pressure Location Lt brachial Position Sitting Pulse 83 Pulse Source Pulse Oximeter Pulse Oximetry (%) 95 Oxygen Delivery Method Room Air Intake Visit Reasons: 4 month follow up Intake Note: Pt is here today for 4 months follow up visit. Allergies No Known Allergies Allergy (Verified 10/23/23 12:42) Medication List - Last Reconciled 10/23/23 by Misa Clemons MD atorvastatin 40 mg PO DAILY blood sugar diagnostic (OneTouch Ultra Test strips) 1 strip miscellaneous DAILY blood-glucose meter (Black DrummTouch Ultra2 Meter) QD lancets (Black DrummTouch Delica Lancets) Daily to test blood sugar metformin 500 mg PO BID olmesartan 15 mg (3 x 5 mg) PO DAILY 90 days Tobacco use date assessed: 10/23/23 Dental Screening Dental Screen Date: 10/23/23 Did you have a dental visit in the last 12 months?: Yes Did you have a dental problem in the last 6 months where you did not have access to dental care?: No Was dental information given to patient?: Patient has dentist HPI 4 month follow up HPI Details Patient presents for the follow-up of type hypertension hyperlipidemia type 2 DM. [facility] Medical History Hx of mammogram Hip pain, left Recurrent idiopathic pericarditis Annual physical exam Hyperlipemia HTN (hypertension) DM (diabetes mellitus) Liver cyst Hemangioma Fatty liver Colitis Microscopic hematuria Thyroid nodule Right bundle branch block Pericardial effusion Surgical History S/P pericardial window creation Hx of colonoscopy Family History Father HTN (hypertension) Mother HTN (hypertension) Sister HTN (hypertension) Pericarditis Maternal Grandfather Cerebral aneurysm Maternal Grandmother Stroke Paternal Grandfather Emphysema, unspecified Paternal Grandmother Diabetes mellitus Brother S/P triple vessel bypass Brother No problems noted. 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 Housing: House Patient Tobacco Use Status: Never used Tobacco e-Cigarette/Vaping Use: Never Used Second Hand Smoke Exposure: No service: No Current occupational status: employed Cognitive needs: No Hearing needs: No Vision needs: Yes Questionnaire Thrive Questionnaire Date Thrive assessed: 11/21/22 I am a: Patient What is your living situation today?: I have a steady place to live Within the past 12 months, did the food you bought not last and you didn't have the money to get more?: Never true Within the past 12 months, did you worry whether your food would run out before you got money to buy more?: Never true THRIVE Score: 0 AUDIT C Alcohol Use Questionnaire (AUDIT-C) 1. How often do you have a drink containing alcohol?: Never 3. How often do you have six or more drinks on one occasion?: Never Total Score: 0 JOSE J-7 AMB Questionnaire JOSE J-7 Date JOSE J - 7 assessed: 11/21/22 Feeling nervous, anxious, or on edge: 0 = Not at all Not being able to stop or control worryin = Not at all Worrying too much about different things: 0 = Not at all Trouble relaxin = Not at all Being so restless that it is hard to sit still: 0 = Not at all Becoming easily annoyed or irritable: 0 = Not at all Feeling afraid as if something awful might happen: 0 = Not at all Total JOSE J-7 score (0-4 normal; 5-9 mild; 10-14 moderate; 15-21 severe): 0 Source: Developed by Drs. Samir Lemons, Debora Collins, Michele Alexis and colleagues, with an educational tamara from [employer] Review of Systems Const All systems reviewed & are unremarkable except as noted in HPI and below Reports no additional complaints Eyes Reports no additional complaints ENT Reports no additional complaints Card Reports no additional complaints Resp Reports no additional complaints GI Reports no additional complaints Reports no additional complaints Physical exam (Primary Care) Vital Signs: Last Vital Signs Pulse 83 10/23/23 12:37 BP 122/74 10/23/23 12:37 Pulse Ox 95 10/23/23 12:37 Oxygen Delivery Method Room Air 10/23/23 12:37 BMI result Body Mass Index 29.7 Tobacco/Smoking Status: Tobacco use Status Tobacco use date assessed 10/23/23 10/23/23 12:43 Patient Tobacco Use Status Never used Tobacco 10/23/23 12:43 e-Cigarette/Vaping Use Never Used 10/23/23 12:37 Thrive Assessment: Date of Thrive Assessment Date Thrive assessed 11/21/22 10/23/23 12:37 Const General: no acute distress HENMT Head: Yes normal to inspection Throat: Yes posterior oropharynx normal Resp Effort & Inspection: normal respiratory effort Auscultation: clear to auscultation bilaterally Cardio Rhythm: regular rhythm Heart sounds: S1 normal heart sound present and S2 normal heart sound present GI Inspection: Yes normal to inspection Palpation (GI): Soft to palpation Percussion: Yes normal to percussion Auscultation: normal bowel sounds Office Procedures Flu Questionnaire Does the patient have a severe egg allergy?: No Does the patient have severe life threatening allergies?: No Does the patient have a fever or illness today?: No Has the patient ever had Guillain-Comfort Syndrome?: No Has the patient ever had any past reaction to a flu shot?: No Immunizations flu vacc [id number] 6mos up(PF) 60 mcg(15 mcgx4)/0.5 mL IM syringe Performing Provider: Misa Clemons MD Performing Location: [facility] [place] [facility] Administered by: AARON Loyd on 10/23/23 13:13 Dose Route Admin Location Dispensed Lot Number Expiration Date NDC Brass Chaser 0.5 mL IM Left Deltoid 0.5 mL [id number] 03/31/24 [id number] [employer] VIS Given Date VIS Provided VIS Publication Date 10/23/23 Single Vaccine 21 Eligibility Eligibility Date Funding Source Not [facility] Eligible 10/23/23 Private Assessment and Plan Assessment & Plan (1) Hyperlipemia: Code(s): E78.5 - Hyperlipidemia, unspecified Plan: Continue statin (2) HTN (hypertension): Code(s): I10 - Essential (primary) hypertension Plan: Increase olmesartan to 50 mg a day. Increase physical activity low-sodium diet discussed with the patient. Follow-up in 3 months with a fasting labs before (3) DM (diabetes mellitus): Code(s): E11.9 - Type 2 diabetes mellitus without complications Plan: A1c is 6.1, ADA diet increase exercise discussed with the patient she declined increasing metformin dose. Patient will follow-up in 3 months Orders: Orders Lipid Panel 3 Months E11.9 - Type 2 diabetes mellitus without complications, E78.5 - Hyperlipidemia, unspecified, I10 - Essential (primary) hypertension Comprehensive [place]. Panel Fast 3 Months E11.9 - Type 2 diabetes mellitus without complications, E78.5 - Hyperlipidemia, unspecified, I10 - Essential (primary) hypertension AMB Hemoglobin A1c 3 Months E11.9 - Type 2 diabetes mellitus without complications, E78.5 - Hyperlipidemia, unspecified, I10 - Essential (primary) hypertension, Z13.9 - Encounter for screening, unspecified Microalbumin, Random (w Creat) 3 Months E11.9 - Type 2 diabetes mellitus without complications, E78.5 - Hyperlipidemia, unspecified, I10 - Essential (primary) hypertension Influenza [id number] Immunization Today Z23 - Encounter for immunization Medications: Changed From olmesartan 10 mg (2 x 5 mg) PO DAILY 90 days 180 tabs 3RF To olmesartan 15 mg (3 x 5 mg) PO DAILY 90 days 270 tabs 3RF Coding Level of Care Code Est Pt Level 4 (81296) Diagnoses Hyperlipemia E78.5 HTN (hypertension) I10 DM (diabetes mellitus) E11.9
== END 2023-10-23 13:55 | disposition home or self-care (01) ==
PROVIDERS: PCP Internal Medicine; Visit Provider Internal Medicine
DX: E11.69 Type 2 diabetes mellitus with other specified complication (principal); E78.5 Hyperlipidemia, unspecified; I10 Essential (primary) hypertension; Z23 Encounter for immunization
CPT/HCPCS: 90471; 90686; 99214

== ENCOUNTER 2023-11-08 14:25 | Outpatient (AMB) | payer OTHER, SELFPAY ==
[2023-11-08 14:26] VITALS: BP 154/82; PULSE 110; TEMP 36.4; O2SAT 97; BMI 29.3
--- NOTE | 2023-11-08 14:26 | MHC.OFFWIV ---
Intake Vital Signs 11/08/23 14:26 Height 5 ft Weight 150 lb BMI 29.3 BP 154/82 H Blood Pressure Location Rt brachial Position Sitting Pulse 110 H Pulse Source Pulse Oximeter Temp 97.6 F Temp Source Oral Pulse Oximetry (%) 97 Oxygen Delivery Method Room Air Intake Visit Reasons: EST/left side pain from fall (lobby) Intake Note: Pt is here c/o left side pain from fall. Pt states she fell last week. Patient Tobacco Use Status: Never used Tobacco Allergies No Known Allergies Allergy (Verified 11/08/23 14:27) Do you need a note to return to daycare/school/sports/work: No HPI HPI Comments History of Present Illness Details Patient is a 58yo F who presents to office with L rib pain She was playing pickleball on and had mechanical fall onto her L side She fell directly onto the ground and denies falling on her L elbow She denies HT or LOC Pain is worse with deep inspiration and movement Tylenol/Motrin with little relief No nausea, vomiting, diarrhea, constipation, hematuria or blood in stool She denies SOB at rest Slight SOB with exertion Pain is 8/10 sharp and intermittent Denies hx of rib fx in past PFSH Medical History Hx of mammogram Hip pain, left Recurrent idiopathic pericarditis Annual physical exam Hyperlipemia HTN (hypertension) DM (diabetes mellitus) Liver cyst Hemangioma Fatty liver Colitis Microscopic hematuria Thyroid nodule Right bundle branch block Pericardial effusion Surgical History S/P pericardial window creation Hx of colonoscopy Family History Father HTN (hypertension) Mother HTN (hypertension) Sister HTN (hypertension) Pericarditis Maternal Grandfather Cerebral aneurysm Maternal Grandmother Stroke Paternal Grandfather Emphysema, unspecified Paternal Grandmother Diabetes mellitus Brother S/P triple vessel bypass Brother No problems noted. 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 Housing: House Patient Tobacco Use Status: Never used Tobacco e-Cigarette/Vaping Use: Never Used Second Hand Smoke Exposure: No service: No Current occupational status: employed Cognitive needs: No Hearing needs: No Vision needs: Yes Review of Systems Const Denies chills, Denies fatigue and Denies fever(s) Eyes Denies blurry vision ENT Denies dizziness Card Denies chest pain, Denies syncope, Reports dyspnea (slight with exertion) and Reports other (L sided rib pain post fall) Resp Denies cough, Reports pain on inspiration and Reports dyspnea (slight with exertion) GI Reports abdominal pain (Minimal LUQ near ribs), Denies hematochezia, Denies change in stool character, Denies nausea and Denies vomiting Musc Reports back pain and Reports other (L rib pain) Skin/Breast Denies lesions, Denies erythema, Denies rash and Denies unusual bruising Neuro Denies dizziness, Denies syncope and Denies other (Denies HT) Endo Denies fatigue Physical Exam Vital Signs: Last Vital Signs Temp 97.6 F 11/08/23 14:26 Pulse 110 H 11/08/23 14:26 BP 154/82 H 11/08/23 14:26 Pulse Ox 97 11/08/23 14:26 Oxygen Delivery Method Room Air 11/08/23 14:26 BMI result Body Mass Index 29.3 General: Non-toxic, NAD. Speaking full sentences. Skin: Warm dry throughout. No ecchymosis to L black, flank or abdomen/chest Eye: EOMI HENT: Bilateral canals clear. TM non-erythematous, non-bulging. No TM perforation or hemotympanum noted. Respiratory: CTA bilaterally. No wheezes, rales or rhonchi Cardiac: Slight tachycardia. No murmur. + tenderness to palpation L latero/anterior ribs along level 8-10. No step off palpated MSK: Full ROM extremities. No midline spinal tenderness from cervical to lumbar + minimal tenderness to L posterior thoracic myscles. + tenderness to palpation L lateral/anterior ribs inferior to L breast Abdominal: BS present. No rebound or guarding. Minimal tenderness to palpation LUQ with palpation. No CVAT or flank tenderness to palpation Neurology: A/O. No aphasia or facial droop. Gait without abnormality Psych: Good mood and affect Assessment & Plan Assessment & Plan (1) Rib pain: Code(s): R07.81 - Pleurodynia Plan: Patient seen and evaluated. Lungs are CTA Chest xray with ribs: I viewed no pneumothorax, rib fracture of free air under the diaphragm. Repeat HR was 95bpm and O2 97% Discussed muscle relaxant use with pt; lethargy, no alcohol or driving Tylenol/motrin and warm compress prn Patient gave verbal understanding and had no additional questions or concerns at time of discharge All questions answered Orders: Orders XR ribs LT min 3V w CXR1V Today R07.81 - Pleurodynia Medications: New methocarbamol 750 mg PO TID PRN 14 tabs 0RF muscle spasm Coding Level of Care Code Est Pt Level 3 (97561) Diagnoses Rib pain R07.81
== END 2023-11-08 15:14 | disposition home or self-care (01) ==
PROVIDERS: PCP Internal Medicine; Visit Provider Physician Assistant
DX: R07.81 Pleurodynia (principal)
CPT/HCPCS: 99213

== ENCOUNTER 2023-11-08 14:40 | Outpatient (REF) | payer OTHER, SELFPAY ==
--- NOTE | ~2023-11-08 | XR_ITS ---
EXAMINATION: XR RIBS, LEFT CLINICAL INFORMATION: Chest wall/pleural pain COMPARISON: Previous chest x-ray September 2018 TECHNIQUE: 3 views of the left ribs were obtained. One view of the chest FINDINGS: Lungs are clear. No consolidation, pneumothorax, or pleural effusion. The cardiomediastinal silhouette and pulmonary vasculature are normal. Osseous structures are unremarkable. Ribs are intact. No fractures are identified. XR/XR ribs LT min 3V w CXR1V IMPRESSION: Unremarkable examination.
== END 2023-11-08 14:41 | disposition home or self-care (01) ==
LOC: HO.HMGCLDS 14:40
PROVIDERS: PCP Internal Medicine; Visit Provider Physician Assistant
DX: R07.81 Pleurodynia (principal)
CPT/HCPCS: 71101

== ENCOUNTER 2023-12-18 07:17 | Outpatient (REF) | payer OTHER, SELFPAY | END 2023-12-18 07:18 | disposition home or self-care (01) | LOC: HO.MAMMO 07:17 | PROVIDERS: PCP Internal Medicine; Visit Provider Internal Medicine | DX: Z12.31 Encounter for screening mammogram for malignant neoplasm of breast (principal) | CPT/HCPCS: 77063; 77067 ==

== ENCOUNTER → 2023-12-18 07:30 | Outpatient (BNV) | payer OTHER, SELFPAY | PROVIDERS: PCP Internal Medicine; Visit Provider Radiology Diagnostic Radiology | DX: Z12.31 Encounter for screening mammogram for malignant neoplasm of breast (principal) | CPT/HCPCS: 77063; 77067 ==

== ENCOUNTER 2024-01-18 06:09 | Outpatient (REF) | payer OTHER, SELFPAY ==
[2024-01-18 10:57] LABS: Alanine Aminotransferase 31 U/L (0-31); Albumin Level 4.4 g/dL (3.5-5.0); Alkaline Phosphatase 61 U/L (39-117); Anion Gap 10 (12-20); Aspartate Amino Transferase 19 U/L (5-31); Bilirubin Total 0.4 mg/dL (0.0-1.0); Blood Urea Nitrogen 16 mg/dL (9-16); Calcium 9.8 mg/dL (8.4-10.2); Carbon Dioxide 27 mmol/L (22-29); Chloride 107 mmol/L (96-108); Cholesterol 149 mg/dL (<200); Estimated Glomerular Filt Rate 59; Glucose Fasting 115 mg/dL (60-99); HDL Cholesterol 47 mg/dL (>40); LDL Cholesterol Calculated 78 mg/dL (<100); Potassium 4.1 mmol/L (3.3-5.1); Sodium 140 mmol/L (135-145); Total Protein 7.2 g/dL (6.5-8.0); Triglycerides 122 mg/dL (<150)
[2024-01-18 11:30] LABS: Creatinine Urine 154.43 mg/dL; Microalbum/Creatinine Ratio Ur 18.7 ug/mg cr (<30)
== END 2024-01-18 06:10 | disposition home or self-care (01) ==
LOC: HO.HMGCLDS 06:09
PROVIDERS: PCP Internal Medicine; Visit Provider Internal Medicine
DX: E78.5 Hyperlipidemia, unspecified (principal); E11.9 Type 2 diabetes mellitus without complications; I10 Essential (primary) hypertension
CPT/HCPCS: 36415; 80053; 80061; 82043; 82570

== ENCOUNTER 2024-01-22 11:07 | Outpatient (AMB) | payer OTHER, SELFPAY ==
[2024-01-22 11:14] VITALS: BP 114/66; PULSE 78; O2SAT 97; BMI 29.5
--- NOTE | 2024-01-22 11:14 | A.OFFPC_ITS ---
Vital Signs 01/22/24 11:14 Height 5 ft Weight 151 lb BMI 29.5 BP 114/66 Blood Pressure Location Rt brachial Position Sitting Pulse 78 Pulse Source Pulse Oximeter Pulse Oximetry (%) 97 Oxygen Delivery Method Room Air Intake Visit Reasons: 3 month follow up Intake Note: Pt is here today for 3 months follow up visit. Allergies No Known Allergies Allergy (Verified 01/22/24 11:14) Medication List - Last Reconciled 01/22/24 by Misa Clemons MD atorvastatin 40 mg PO DAILY blood sugar diagnostic (OneTouch Ultra Test strips) 1 strip miscellaneous DAILY blood-glucose meter (MamaherbTouch Ultra2 Meter) QD lancets (MamaherbTouch Delica Lancets) Daily to test blood sugar metformin 500 mg PO BID olmesartan 15 mg (3 x 5 mg) PO DAILY 90 days Tobacco use date assessed: 01/22/24 Dental Screening Dental Screen Date: 01/22/24 Did you have a dental visit in the last 12 months?: Yes Did you have a dental problem in the last 6 months where you did not have access to dental care?: No Was dental information given to patient?: Patient has dentist HPI 3 month follow up HPI Details Patient presents for the follow-up of hypertension hyperlipidemia type 2 diabetes. Her is hospitalized at [facility] with esophageal bleeding and pneumonia. [facility] Medical History Hx of mammogram Hip pain, left Recurrent idiopathic pericarditis Annual physical exam Hyperlipemia HTN (hypertension) DM (diabetes mellitus) Liver cyst Hemangioma Fatty liver Colitis Microscopic hematuria Thyroid nodule Right bundle branch block Pericardial effusion Surgical History S/P pericardial window creation Hx of colonoscopy Family History Father HTN (hypertension) Mother HTN (hypertension) Sister HTN (hypertension) Pericarditis Maternal Grandfather Cerebral aneurysm Maternal Grandmother Stroke Paternal Grandfather Emphysema, unspecified Paternal Grandmother Diabetes mellitus Brother S/P triple vessel bypass Brother No problems noted. 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 Samir Lemons, Debora Collins, Michele Alexis and colleagues, with an educational tamara from [email or web address]. Review of Systems Const All systems reviewed & are unremarkable except as noted in HPI and below Reports no additional complaints Eyes Reports no additional complaints ENT Reports no additional complaints Card Reports no additional complaints Resp Reports no additional complaints Reports no additional complaints Musc Reports no additional complaints Skin/Breast Reports system reviewed and no additional complaints, except as documented Physical exam (Primary Care) Vital Signs: Last Vital Signs Pulse 78 01/22/24 11:14 BP 114/66 01/22/24 11:14 Pulse Ox 97 01/22/24 11:14 Oxygen Delivery Method Room Air 01/22/24 11:14 BMI result Body Mass Index 29.5 Tobacco/Smoking Status: Tobacco use Status Tobacco use date assessed 01/22/24 01/22/24 11:17 Patient Tobacco Use Status Never used Tobacco 01/22/24 11:16 e-Cigarette/Vaping Use Never Used 01/22/24 11:16 Thrive Assessment: Date of Thrive Assessment Date Thrive assessed 11/21/22 01/22/24 11:16 Const General: no acute distress HENMT Face and sinus: Yes normal facial exam Neck Neck: Yes normal visual inspection Resp Effort & Inspection: normal respiratory effort Auscultation: clear to auscultation bilaterally Cardio Rhythm: regular rhythm Heart sounds: S1 normal heart sound present and S2 normal heart sound present GI Inspection: Yes normal to inspection Palpation (GI): Soft to palpation Percussion: Yes normal to percussion Auscultation: normal bowel sounds Assessment and Plan Assessment & Plan (1) DM (diabetes mellitus): Code(s): E11.9 - Type 2 diabetes mellitus without complications Plan: A1c was 6.1, Continue ADA diet regular exercise and metformin, follow-up in June with a fasting labs before (2) HTN (hypertension): Code(s): I10 - Essential (primary) hypertension Plan: Continue current medications (3) Hyperlipemia: Code(s): E78.5 - Hyperlipidemia, unspecified Plan: Continue statin Orders: Orders Complete Blood Count Auto Diff 5 Months E11.9 - Type 2 diabetes mellitus without complications, E78.5 - Hyperlipidemia, unspecified, I10 - Essential (primary) hypertension Hemoglobin A1c 5 Months E11.9 - Type 2 diabetes mellitus without complications, E78.5 - Hyperlipidemia, unspecified, I10 - Essential (primary) hypertension Microalbumin, Random (w Creat) 5 Months E11.9 - Type 2 diabetes mellitus without complications, E78.5 - Hyperlipidemia, unspecified, I10 - Essential (primary) hypertension Comprehensive [place]. Panel Fast 5 Months E11.9 - Type 2 diabetes mellitus w ithout complications, E78.5 - Hyperlipidemia, unspecified, I10 - Essential (primary) hypertension Lipid Panel 5 Months E11.9 - Type 2 diabetes mellitus without complications, E78.5 - Hyperlipidemia, unspecified, I10 - Essential (primary) hypertension TSH reflex Free T4 5 Months E11.9 - Type 2 diabetes mellitus without complications, E78.5 - Hyperlipidemia, unspecified, I10 - Essential (primary) hypertension Coding Level of Care Code Est Pt Level 4 (09061) Diagnoses DM (diabetes mellitus) E11.9 HTN (hypertension) I10 Hyperlipemia E78.5
== END 2024-01-22 12:45 | disposition home or self-care (01) ==
LOC: HO.HMGC 11:07
PROVIDERS: PCP Internal Medicine; Visit Provider Internal Medicine
DX: E11.9 Type 2 diabetes mellitus without complications (principal); I10 Essential (primary) hypertension; E78.5 Hyperlipidemia, unspecified
CPT/HCPCS: 99214

== ENCOUNTER 2024-04-01 10:51 | Outpatient (AMB) | payer OTHER, SELFPAY ==
--- NOTE | 2024-04-01 10:52 | MHC.OFFVIS ---
Vital Signs 04/01/24 10:55 Height 5 ft Weight 148 lb 9.465 oz BMI 29.0 BP 122/80 Blood Pressure Location Lt brachial Position Sitting Pulse Oximetry (%) 103 H Intake Visit Reasons: 1 yr follow up Intake Note: 1 yr follow up. 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 No cardiac symptoms. Overall doing well from cardiac perspective. Denies any exertional chest pain or shortness of breath. No pericarditis symptoms. Blood pressures been generally well controlled at home. Last LDL 78 mg/dL. Hemoglobin A1c being pursue through your office last hemoglobin A1c of 6.1% in October. No lightheadedness, prolonged palpitations. [facility] Medical History Hx of mammogram Hip pain, left Recurrent idiopathic pericarditis Annual physical exam Hyperlipemia HTN (hypertension) DM (diabetes mellitus) Liver cyst Hemangioma Fatty liver Colitis Microscopic hematuria Thyroid nodule Right bundle branch block Pericardial effusion Surgical History S/P pericardial window creation Hx of colonoscopy Family History Father HTN (hypertension) Mother HTN (hypertension) Sister HTN (hypertension) Pericarditis Maternal Grandfather Cerebral aneurysm Maternal Grandmother Stroke Paternal Grandfather Emphysema, unspecified Paternal Grandmother Diabetes mellitus Brother S/P triple vessel bypass Brother No problems noted. 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 Members Other:: works as a [employer], , 3 sons Housing: House Patient Tobacco Use Status: Never used Tobacco e-Cigarette/Vaping Use: Never Used Second Hand Smoke Exposure: No service: No Current occupational status: employed Cognitive needs: No Hearing needs: No Vision needs: Yes Review of Systems Const Denies chills, Denies fatigue, Denies fever(s), Denies frequent falls, Denies weakness, Denies weight gain and Denies weight loss ENT Denies dizziness Card Denies chest pain, Denies leg edema, Denies lightheadedness, Denies palpitations, Denies dyspnea, Denies dyspnea on exertion, Denies orthopnea and Denies other (loss of consciousness) Resp Denies cough, Denies dyspnea and Denies dyspnea on exertion GI Denies hematochezia and Denies change in stool character Musc Denies abnormal gait, Denies muscle weakness, Denies numbness, Denies radiating pain into limb and Denies tingling Neuro Denies abnormal gait, Denies dizziness, Denies frequent falls, Denies numbness, Denies tingling and Denies weakness Endo Denies fatigue and Denies palpitations Physical Exam Vital Signs: Last Vital Signs BP 122/80 04/01/24 10:55 BMI result Body Mass Index 29.0 Const General: cooperative, comfortable, no acute distress, alert, awake, anxious and well groomed Nutritional Appearance: overweight Orientation/consciousness: patient oriented x3 Limitations: no limitations Neck Neck: Yes trachea midline, Yes supple and Yes no JVD Resp Effort & Inspection: normal respiratory effort Auscultation: clear to auscultation bilaterally Cardio Jugular venous distension: no JVD Palpation: normal PMI Rate: regular rate Rhythm: regular rhythm Heart sounds: S1 normal heart sound present and S2 normal heart sound present GI Auscultation: normal bowel sounds Skin General skin exam: no rashes or lesions noted Neuro General: patient oriented x3 and no focal motor deficits Extrem General: Yes no clubbing, cyanosis or edema Psych Appearance: grossly normal Affect: Anxious affect present Office Procedures EKG Details: EKG shows sinus tachycardia with right atrial enlargement with left anterior fascicular block with poor R-wave progression most likely lead placement [id number], Complete Assessment & Plan Assessment & Plan (1) Recurrent idiopathic pericarditis: Code(s): I30.0 - Acute nonspecific idiopathic pericarditis Category: Medical Plan: Patient with prior history of recurrent idiopathic pericarditis status post pericardial window. Has had no recurrent episodes of pericarditis in many years now. Need to monitor for symptoms. Advised to call me with new symptoms. No change in therapy at this point in time. (2) HTN (hypertension): Code(s): I10 - Essential (primary) hypertension Category: Medical Plan: Hypertension with significant vascular risk factors. Blood pressure is currently well optimized advised to continue current therapy. Importance of good blood pressure control was discussed. Target goal blood pressure less than 130/84. Advised to monitor the same. At home. Hemoglobin A1c by last testing was within normal limits. LDL is well optimized. Will refill a statin therapy. Advised to call me with any exertional symptoms or vascular symptoms. Continue participate in physical activity as tolerated. Will follow up in the clinic in 2 years time, sooner p.r.n.. Thank you for allowing me to partake in her care Medications: Refilled atorvastatin 40 mg PO DAILY 90 tabs 3RF Coding Level of Care Code Est Pt Level 3 (06828) Diagnoses Recurrent idiopathic pericarditis I30.0 HTN (hypertension) I10 CPT Codes EKG - CPT: 87176-[id number], Complete ([id number])
[2024-04-01 10:55] VITALS: BP 122/80; O2SAT 103; BMI 29.0
== END 2024-04-01 11:07 | disposition home or self-care (01) ==
PROVIDERS: PCP Internal Medicine; Visit Provider Internal Medicine Cardiovascular Disease
DX: I30.0 Acute nonspecific idiopathic pericarditis (principal); I10 Essential (primary) hypertension
CPT/HCPCS: 93010; 99213

== ENCOUNTER → 2024-04-01 10:51 | Outpatient (BNVA) | payer OTHER, SELFPAY | PROVIDERS: PCP Internal Medicine; Visit Provider Internal Medicine Cardiovascular Disease | DX: I30.0 Acute nonspecific idiopathic pericarditis (principal); I10 Essential (primary) hypertension; Z79.899 Other long term (current) drug therapy | CPT/HCPCS: 93005 ==

== ENCOUNTER 2024-04-03 08:11 | Outpatient (AMB) | payer OTHER, SELFPAY ==
--- NOTE | 2024-04-03 08:15 | AM.OFFWIN_ITS ---
Intake Vital Signs 04/03/24 08:16 Height 5 ft Weight 148 lb BMI 28.9 BP 118/82 Blood Pressure Location Rt brachial Position Sitting Pulse 108 H Pulse Source Pulse Oximeter Temp 99.1 F Temp Source Oral Pulse Oximetry (%) 98 Oxygen Delivery Method Room Air Intake Visit Reasons: EP body aches fever headache chills Intake Note: pt here c/o body aches, fever, headache and chills. Started Monday. Patient Tobacco Use Status: Never used Tobacco Allergies No Known Allergies Allergy (Verified 04/03/24 08:16) Do you need a note to return to daycare/school/sports/work: Yes HPI HPI Comments History of Present Illness Details 58 y/o female patient who [facility] clinic with c/o Fevers, chills, body aches and fatigue since Monday. She has been taking Acetaminophen with good relief. Denies any other symptoms. Denies Nausea, vomiting or diarrhea. [facility] Medical History Hx of mammogram Hip pain, left Recurrent idiopathic pericarditis Annual physical exam Hyperlipemia HTN (hypertension) DM (diabetes mellitus) Liver cyst Hemangioma Fatty liver Colitis Microscopic hematuria Thyroid nodule Right bundle branch block Pericardial effusion Surgical History S/P pericardial window creation Hx of colonoscopy Family History Father HTN (hypertension) Mother HTN (hypertension) Sister HTN (hypertension) Pericarditis Maternal Grandfather Cerebral aneurysm Maternal Grandmother Stroke Paternal Grandfather Emphysema, unspecified Paternal Grandmother Diabetes mellitus Brother S/P triple vessel bypass Brother No problems noted. 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 Housing: House Patient Tobacco Use Status: Never used Tobacco e-Cigarette/Vaping Use: Never Used Second Hand Smoke Exposure: No service: No Current occupational status: employed Cognitive needs: No Hearing needs: No Vision needs: Yes Review of Systems Const All systems reviewed & are unremarkable except as noted in HPI and below Physical Exam Vital Signs: Last Vital Signs Temp 99.1 F 04/03/24 08:16 Pulse 108 H 04/03/24 08:16 BP 118/82 04/03/24 08:16 Pulse Ox 98 04/03/24 08:16 Oxygen Delivery Method Room Air 04/03/24 08:16 BMI result Body Mass Index 28.9 Const General: comfortable and no acute distress Nutritional Appearance: overweight Orientation/consciousness: patient oriented x3 HEENT Head: Yes normocephalic Ears: external ears normal and TM's normal bilaterally General nose exam: Normal nasal mucous membranes and turbinates present Face and sinus: Yes sinuses nontender Mouth: moist mucous membranes Throat: Yes posterior oropharynx normal Resp Effort & Inspection: normal respiratory effort, able to speak in complete sentences, no audible wheezes and no cough Auscultation: clear to auscultation bilaterally, no crackles, no rales, no rhonchi and no wheezes Cardio Rate: regular rate Rhythm: regular rhythm Neuro General: patient oriented x3, gait normal and moves all extremities Psych Speech and movement: Normal speech and movement present Assessment & Plan Assessment & Plan (1) Upper respiratory infection: Code(s): J06.9 - Acute upper respiratory infection, unspecified Qualifiers: URI type: unspecified viral URI Qualified Code(s): J06.9 - Acute upper respiratory infection, unspecified Plan: Rest and hydrate well with warm fluids Acetaminophen for pain and fever relief Z-Pack RTC if not better. Medications: New azithromycin 500 mg PO DAILY 3 days 3 tabs 0RF J06.9 - Acute upper respiratory infection, unspecified acetaminophen 1,000 mg (2 x 500 mg) PO Q6H PRN 30 caps 0RF fever J06.9 - Acute upper respiratory infection, unspecified Coding Level of Care Code Est Pt Level 3 (32218) Diagnoses Viral upper respiratory tract infection J06.9 URI type: unspecified viral URI Time Spent (min) 15
[2024-04-03 08:16] VITALS: BP 118/82; PULSE 108; TEMP 37.3; O2SAT 98; BMI 28.9
== END 2024-04-03 09:22 | disposition home or self-care (01) ==
PROVIDERS: PCP Internal Medicine; Visit Provider Nurse Practitioner Family
DX: J06.9 Acute upper respiratory infection, unspecified (principal)
CPT/HCPCS: 99213

== ENCOUNTER 2024-06-28 09:47 | Outpatient (REF) | payer OTHER, SELFPAY ==
[2024-06-28 13:16] LABS: MANUAL DIFF FLAG NO
[2024-06-28 13:47] LABS: Basophils Absolute Auto 0.1 X10*3/uL (0.0-0.2); Basophils Percent Auto 0.7 % (0-2); Eosinophils Absolute Auto 0.3 X10*3/uL (0.0-0.4); Eosinophils Percent Auto 4.1 % (0-4); Hematocrit 40.7 % (37.0-47.0); Hemoglobin 13.6 g/dl (12.0-16.0); Imm Gran Abs Auto 0.01 X10*3/uL (0.00-0.03); Imm Gran Pct Auto 0.1 % (0.0-0.4); Lymphocytes Absolute Auto 3.2 X10*3/uL (1.2-4.9); Lymphocytes Percent Auto 42.6 % (20-40); Mean Corpuscular HGB Conc 33.4 g/dl (31.0-35.0); Mean Corpuscular Hemoglobin 32.2 pg (27.0-33.0); Mean Corpuscular Volume 96.2 fL (80.0-98.0); Mean Platelet Volume 10.6 fL (9.4-12.3); Monocytes Absolute Auto 0.6 X10*3/uL (0.1-1.2); Monocytes Percent Auto 8.1 % (2-11); Neutrophils Absolute Auto 3.4 x10*3/uL (2.0-8.3); Neutrophils Percent Auto 44.4 % (45-73); Platelet Count 328 X10*3/uL (160-400); Red Blood Count 4.23 X10*6/uL (4.20-5.50); Red Cell Distribution Width 12.6 % (11.0-16.0); White Blood Count 7.6 X10*3/uL (4.8-10.8)
[2024-06-28 13:57] LABS: Alanine Aminotransferase 25 U/L (0-31); Albumin Level 4.4 g/dL (3.5-5.0); Alkaline Phosphatase 65 U/L (39-117); Anion Gap 12 (12-20); Aspartate Amino Transferase 19 U/L (5-31); Bilirubin Total 0.3 mg/dL (0.0-1.0); Blood Urea Nitrogen 19 mg/dL (9-16); Calcium 10.2 mg/dL (8.4-10.2); Carbon Dioxide 26 mmol/L (22-29); Chloride 107 mmol/L (96-108); Cholesterol 137 mg/dL (<200); Estimated Glomerular Filt Rate > 60; Glucose Fasting 101 mg/dL (60-99); HDL Cholesterol 43 mg/dL (>40); LDL Cholesterol Calculated 64 mg/dL (<100); Potassium 4.1 mmol/L (3.3-5.1); Sodium 141 mmol/L (135-145); Total Protein 7.2 g/dL (6.5-8.0); Triglycerides 151 mg/dL (<150)
[2024-06-28 14:12] LABS: Creatinine Urine 133.16 mg/dL
[2024-06-28 14:13] LABS: Estimated Average Glucose 134 mg/dL; Hemoglobin A1c % 6.3 % (<6.0)
[2024-06-28 14:15] LABS: TSH reflex Free T4 0.99 uIU/mL (0.32-4.0)
== END 2024-06-28 09:48 | disposition home or self-care (01) ==
LOC: HO.HMGCLDS 09:47
PROVIDERS: PCP Internal Medicine; Visit Provider Internal Medicine
DX: E78.5 Hyperlipidemia, unspecified (principal); I10 Essential (primary) hypertension; E11.9 Type 2 diabetes mellitus without complications
CPT/HCPCS: 36415; 80053; 80061; 82043; 82570; 83036; 84443; 85025

== ENCOUNTER 2024-07-01 12:54 | Outpatient (AMB) | payer OTHER, SELFPAY ==
--- NOTE | 2024-07-01 13:26 | MHC.PC.OV ---
Vital Signs 07/01/24 13:29 Height 5 ft Weight 149 lb BMI 29.1 BP 122/78 Blood Pressure Location Lt brachial Position Sitting Pulse 77 Pulse Source Pulse Oximeter Pulse Oximetry (%) 96 Oxygen Delivery Method Room Air Intake Visit Reasons: Annual PE Intake Note: Pt is here today for PE. Allergies No Known Allergies Allergy (Verified 07/01/24 13:30) Medication List - Last Reconciled 07/01/24 by Misa Clemons MD acetaminophen 1,000 mg (2 x 500 mg) PO Q6H PRN atorvastatin 40 mg PO DAILY blood sugar diagnostic ([employer] Ultra Test strips) 1 strip miscellaneous DAILY blood-glucose meter ([employer] Ultra2 Meter) QD lancets ([employer] Delica Lancets) Daily to test blood sugar metformin 500 mg PO BID olmesartan 15 mg (3 x 5 mg) PO DAILY 90 days Tobacco use date assessed: 01/22/24 Dental Screening Dental Screen Date: 01/22/24 HPI Annual PE HPI Details Pt presents for PE. PFSH Medical History Hx of mammogram Hip pain, left Recurrent idiopathic pericarditis Annual physical exam Hyperlipemia HTN (hypertension) DM (diabetes mellitus) Liver cyst Hemangioma Fatty liver Colitis Microscopic hematuria Thyroid nodule Right bundle branch block Pericardial effusion Surgical History S/P pericardial window creation Hx of colonoscopy Family History Father HTN (hypertension) Mother HTN (hypertension) Sister HTN (hypertension) Pericarditis Maternal Grandfather Cerebral aneurysm Maternal Grandmother Stroke Paternal Grandfather Emphysema, unspecified Paternal Grandmother Diabetes mellitus Brother S/P triple vessel bypass Brother No problems noted. 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 1. Little interest or pleasure in doing things: not at all 2. Feeling down, depressed, or hopeless: not at all 3. Trouble falling or staying asleep, or sleeping too much: not at all 4. Feeling tired or having little energy: not at all 5. Poor appetite or overeating: not at all 6. Feeling bad about yourself - or that you are a failure or have let yourself or your family down: not at all 7. Trouble concentrating on things, such as reading the newspaper or watching television: not at all 8. Moving or speaking so slowly that other people could have noticed. Or the opposite - being so fidgety or restless that you have been moving around a lot more than usual: not at all 9. Thoughts that you would be better off or of hurting yourself in some way: not at all Total score: 0 Depression Screening Interpretation: Negative Depression Screening Done: Yes 71404 - PHQ-9 Billing: Yes Source: Developed by Drs. Samir Lemons, Debora Collins, Michele Alexis and colleagues, with an educational tamara from [email or web address]. Thrive Questionnaire Date Thrive assessed: 07/01/24 I am a: Patient What is your living situation today?: I have a steady place to live Within the past 12 months, did the food you bought not last and you didn't have the money to get more?: Never true Within the past 12 months, did you worry whether your food would run out before you got money to buy more?: Never true Do you have trouble paying for medicines?: No Do you have trouble getting transportation to medical appointments?: No Do you have trouble paying your heating and electricity bill?: No Do you have trouble taking care of your child, family member or friend?: No Do you have trouble with day-to-day activities such as bathing, preparing meals, shopping, managing finances, etc.?: No Are you currently unemployed and looking for a job?: No Are you interested in more education?: No Please select the resources that you would like help with: None Currently or been in a relationship where the following occur: No concerns reported THRIVE Score: 0 AUDIT C Alcohol Use Questionnaire (AUDIT-C) 1. How often do you have a drink containing alcohol?: Never Total Score: 0 JOSE J-7 AMB Questionnaire JOSE J-7 Date JOSE J - 7 assessed: 07/01/24 Feeling nervous, anxious, or on edge: 0 = Not at all Not being able to stop or control worryin = Not at all Worrying too much about different things: 0 = Not at all Trouble relaxin = Not at all Being so restless that it is hard to sit still: 0 = Not at all Becoming easily annoyed or irritable: 0 = Not at all Feeling afraid as if something awful might happen: 0 = Not at all Total JOSE J-7 score (0-4 normal; 5-9 mild; 10-14 moderate; 15-21 severe): 0 Source: Developed by Drs. Samir Lemons, Debora Collins, Michele Alexis and colleagues, with an educational tamara from [email or web address]. JOSE J-7 Assessment Billing JOSE J-7 Assessment Tool: JOSE J-7 Assessment 11766 Review of Systems Const All systems reviewed & are unremarkable except as noted in HPI and below Eyes Reports no additional complaints ENT Reports no additional complaints Card Reports no additional complaints Resp Reports no additional complaints GI Reports no additional complaints Reports no additional complaints Physical exam (Primary Care) Vital Signs: Last Vital Signs Pulse 77 07/01/24 13:29 BP 122/78 07/01/24 13:29 Pulse Ox 96 07/01/24 13:29 Oxygen Delivery Method Room Air 07/01/24 13:29 BMI result Body Mass Index 29.1 Tobacco/Smoking Status: Tobacco use Status Tobacco use date assessed 01/22/24 07/01/24 13:27 Patient Tobacco Use Status Never used Tobacco 07/01/24 13:27 e-Cigarette/Vaping Use Never Used 07/01/24 13:27 PHQ-9: PHQ-9 Score PHQ-9: Total score 0 07/01/24 13:33 Depression Screening Interpretation: Negative Thrive Assessment: Date of Thrive Assessment Date Thrive assessed 07/01/24 07/01/24 13:33 Currently or been in a relationship where the following occur: No concerns reported Const General: no acute distress HENMT Head: Yes normal to inspection Face and sinus: Yes normal facial exam Eyes General: appearance normal, both eyes and all related structures Neck Neck: Yes no lymphadenopathy and Yes supple Resp Effort & Inspection: normal respiratory effort Auscultation: clear to auscultation bilaterally Cardio Rhythm: regular rhythm Heart sounds: S1 normal heart sound present and S2 normal heart sound present GI Inspection: Yes normal to inspection Palpation (GI): Soft to palpation Percussion: Yes normal to percussion Auscultation: normal bowel sounds Extrem General: Yes no clubbing, cyanosis or edema Assessment and Plan Assessment & Plan (1) DM (diabetes mellitus): Code(s): E11.9 - Type 2 diabetes mellitus without complications Plan: A1c is 6.3, ADA diet increase physical activity weight loss discussed with the patient continue metformin follow-up in 6 months with a fasting labs before (2) HTN (hypertension): Code(s): I10 - Essential (primary) hypertension Plan: Continue current medications (3) Annual physical exam: Code(s): Z00.00 - Encounter for general adult medical examination without abnormal findings Plan: Well-balanced diet regular physical activity discussed with the patient. She is up-to-date with the mammogram colonoscopy and Pap smear (4) Hyperlipemia: Code(s): E78.5 - Hyperlipidemia, unspecified Plan: Continue statin Orders: Orders Comprehensive [place]. Panel Fast 6 Months E11.9 - Type 2 diabetes mellitus without complications, E78.5 - Hyperlipidemia, unspecified, I10 - Essential (primary) hypertension Hemoglobin A1c 6 Months E11.9 - Type 2 diabetes mellitus without complications, E78.5 - Hyperlipidemia, unspecified, I10 - Essential (primary) hypertension Microalbumin, Random (w Creat) 6 Months E11.9 - Type 2 diabetes mellitus without complications, E78.5 - Hyperlipidemia, unspecified, I10 - Essential (primary) hypertension Lipid Panel 6 Months E11.9 - Type 2 diabetes mellitus without complications, E78.5 - Hyperlipidemia, unspecified, I10 - Essential (primary) hypertension UA w Microscopic Today E11.9 - Type 2 diabetes mellitus without complications, I10 - Essential (primary) hypertension Coding Level of Care Code Est Pt Prev Care 40-64y(61504) Diagnoses DM (diabetes mellitus) E11.9 HTN (hypertension) I10 Annual physical exam Z00.00 Hyperlipemia E78.5 Additional Codes JOSE J-7 Assessment Billing - JOSE J-7 Assessment Tool: JOSE J-7 Assessment 44634 ([id number])
[2024-07-01 13:29] VITALS: BP 122/78; PULSE 77; O2SAT 96; BMI 29.1
== END 2024-07-01 14:02 | disposition home or self-care (01) ==
PROVIDERS: PCP Internal Medicine; Visit Provider Internal Medicine
DX: E11.9 Type 2 diabetes mellitus without complications (principal); I10 Essential (primary) hypertension; Z00.00 Encounter for general adult medical examination without abnormal findings; E78.5 Hyperlipidemia, unspecified

== ENCOUNTER → 2024-07-01 12:54 | Outpatient (BNVA) | payer OTHER, SELFPAY | PROVIDERS: PCP Internal Medicine; Visit Provider Internal Medicine | DX: Z00.00 Encounter for general adult medical examination without abnormal findings (principal); E11.9 Type 2 diabetes mellitus without complications; I10 Essential (primary) hypertension; E78.5 Hyperlipidemia, unspecified; Z79.899 Other long term (current) drug therapy | CPT/HCPCS: 96127 ==

== ENCOUNTER 2024-07-01 14:03 | Outpatient (REF) | payer OTHER, SELFPAY ==
[2024-07-01 16:49] LABS: Appearance Urine Cloudy; Color Urine Yellow; Glucose Urine UA Negative (Negative); Leukocyte Esterase Urine Large (3+) (Negative); Nitrite Urine Negative (Negative); PH 5.5 (5.0-9.0); UMIC TRIGGER UA YES; Urine Blood Trace (Negative); Urine Ketones Negative (Negative); Urine Protein Negative (Neg-Trace)
[2024-07-01 16:55] LABS: Bacteria Urine None Seen (None Seen); Hyaline Casts Urine 0-2 /LPF (0-2); RBC Urine 0-2 /HPF (0-2); WBC Urine >50 /HPF (0-5)
== END 2024-07-01 14:04 | disposition home or self-care (01) ==
LOC: HO.HMGCLDS 14:03
PROVIDERS: PCP Internal Medicine; Visit Provider Internal Medicine
DX: E11.9 Type 2 diabetes mellitus without complications (principal); I10 Essential (primary) hypertension
CPT/HCPCS: 81001

== ENCOUNTER 2024-07-18 06:08 | Outpatient (REF) | payer OTHER, SELFPAY ==
[2024-07-18 07:40] LABS: Appearance Urine Cloudy; Color Urine Yellow; Glucose Urine UA Negative (Negative); Leukocyte Esterase Urine Large (3+) (Negative); Nitrite Urine Negative (Negative); PH 5.5 (5.0-9.0); UMIC TRIGGER UA YES; Urine Blood Small (1+) (Negative); Urine Ketones Trace mg/dL (Negative); Urine Protein Negative (Neg-Trace)
[2024-07-18 07:57] LABS: Bacteria Urine Trace (None Seen); Calcium Oxalate Crystals Urine Present; Hyaline Casts Urine 0-2 /LPF (0-2); Squamous Epithelial Cell Urine 0-2 /HPF (0-2); WBC Clumps Urine Present; WBC Urine >50 /HPF (0-5)
== END 2024-07-18 06:09 | disposition home or self-care (01) ==
LOC: HO.LAB 06:08
PROVIDERS: PCP Internal Medicine; Visit Provider Internal Medicine
DX: N39.0 Urinary tract infection, site not specified (principal)
CPT/HCPCS: 81001

== ENCOUNTER 2024-08-06 06:10 | Outpatient (REF) | payer OTHER, SELFPAY | END 2024-08-06 06:11 | disposition home or self-care (01) | LOC: HO.US 06:10 | PROVIDERS: PCP Internal Medicine; Visit Provider Internal Medicine | DX: N39.0 Urinary tract infection, site not specified (principal); R31.29 Other microscopic hematuria | CPT/HCPCS: 76770; 87086 ==

== ENCOUNTER 2024-12-23 07:38 | Outpatient (REF) | payer OTHER, SELFPAY | END 2024-12-23 07:39 | disposition home or self-care (01) | LOC: HO.MAMMO 07:38 | PROVIDERS: PCP Internal Medicine; Visit Provider Internal Medicine | DX: Z12.31 Encounter for screening mammogram for malignant neoplasm of breast (principal) | CPT/HCPCS: 77063; 77067 ==

== ENCOUNTER → 2024-12-23 07:45 | Outpatient (BNV) | payer OTHER, SELFPAY | PROVIDERS: PCP Internal Medicine; Visit Provider Internal Medicine | DX: Z12.31 Encounter for screening mammogram for malignant neoplasm of breast (principal) | CPT/HCPCS: 77063; 77067 ==

== ENCOUNTER 2024-12-28 07:40 | Outpatient (REF) | payer OTHER, SELFPAY ==
[2024-12-28 08:43] LABS: Estimated Average Glucose 146 mg/dL; Hemoglobin A1c % 6.7 % (<6.0); Total Hemoglobin (HGBA1C) 3427.6384 umol/L
[2024-12-28 09:19] LABS: Creatinine Urine 61.39 mg/dL; Microalbum/Creatinine Ratio Ur 9.7 ug/mg cr (<30)
[2024-12-28 09:21] LABS: Alanine Aminotransferase 34 U/L (0-31); Albumin Level 4.5 g/dL (3.5-5.0); Alkaline Phosphatase 70 U/L (39-117); Anion Gap 11 (12-20); Aspartate Amino Transferase 25 U/L (5-31); Bilirubin Total 0.3 mg/dL (0.0-1.0); Blood Urea Nitrogen 25 mg/dL (9-16); Calcium 10.1 mg/dL (8.4-10.2); Carbon Dioxide 25 mmol/L (22-29); Chloride 107 mmol/L (96-108); Cholesterol 133 mg/dL (<200); Estimated Glomerular Filt Rate > 60; Glucose Fasting 104 mg/dL (60-99); HDL Cholesterol 38 mg/dL (>40); LDL Cholesterol Calculated 70 mg/dL (<100); Sodium 139 mmol/L (135-145); Total Protein 7.2 g/dL (6.5-8.0); Triglycerides 128 mg/dL (<150)
== END 2024-12-28 07:41 | disposition home or self-care (01) ==
LOC: HO.LAB 07:40
PROVIDERS: PCP Internal Medicine; Visit Provider Internal Medicine
DX: I10 Essential (primary) hypertension (principal); E11.9 Type 2 diabetes mellitus without complications; E78.5 Hyperlipidemia, unspecified
CPT/HCPCS: 36415; 80053; 80061; 82043; 82570; 83036

== ENCOUNTER 2024-12-31 12:19 | Outpatient (REF) | payer OTHER, SELFPAY ==
--- NOTE | ~2024-12-31 | XR_ITS ---
EXAMINATION: XR HIP, LEFT CLINICAL INFORMATION: M25.552 - Pain in left hip COMPARISON: 12/16/2021. TECHNIQUE: Two views of the left hip. FINDINGS: No fracture, dislocation, or suspicious bone lesion. There is anatomical alignment. There are moderate to severe changes of arthritis in the left hip joint, with marginal acetabular and subcapsular spurs, subchondral sclerosis and cystic changes of the acetabulum and femoral head, and moderate to severe joint space narrowing axially. Remainder the bony and soft tissue structures appear normal. XR/XR hip LT min 2V IMPRESSION: Moderate to severe left hip arthritis. This has mildly progressed from 2021. Electronically signed by: Rashi Vargas MD 01/01/2025 10:22 AM EDT
== END 2024-12-31 12:20 | disposition home or self-care (01) ==
LOC: HO.HMGCX 12:19
PROVIDERS: PCP Internal Medicine; Visit Provider Internal Medicine
DX: M25.552 Pain in left hip (principal); Z23 Encounter for immunization; E11.9 Type 2 diabetes mellitus without complications; I10 Essential (primary) hypertension; E78.5 Hyperlipidemia, unspecified; Z79.84 Long term (current) use of oral hypoglycemic drugs; Z79.899 Other long term (current) drug therapy
CPT/HCPCS: 73502; 90471; 90677; 96127

== ENCOUNTER 2024-12-31 12:19 | Outpatient (AMB) | payer OTHER, SELFPAY ==
[2024-12-31 12:28] VITALS: BP 118/78; PULSE 79; O2SAT 97; BMI 29.5
--- NOTE | 2024-12-31 12:28 | MHC.PC.OV ---
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 Accompanied by: Self / Same As Patient Allergies No Known Allergies Allergy (Verified 12/31/24 12:28) Medication List - Last Reconciled 12/31/24 by Misa Clemons MD acetaminophen 1,000 mg (2 x 500 mg) PO Q6H PRN atorvastatin 40 mg PO DAILY blood sugar diagnostic (Sisteeruch Ultra Test strips) 1 strip miscellaneous DAILY blood-glucose meter ([employer] Ultra2 Meter) QD lancets ([employer] Delica Lancets) Daily to test blood sugar meloxicam 15 mg PO DAILY metformin 500 mg PO BID olmesartan 15 mg (3 x 5 mg) PO DAILY 90 days Tobacco use date assessed: 12/31/24 Dental Screening Dental Screen Date: 12/31/24 Did you have a dental visit in the last 12 months?: Yes Did you have a dental problem in the last 6 months where you did not have access to dental care?: No Was dental information given to patient?: Patient has dentist HPI 6 months f/up HPI Details Patient presents for the follow-up of type 2 diabetes hyperlipidemia. She complains of chronic left hip pain getting worse over last few months. The pain is exacerbated by walking. She denies pain at rest. She had x-ray of left hip 3 years ago consistent with moderate osteoarthritis and was seen by Dr. León [facility] Medical History Hx of mammogram Hip pain, left Recurrent idiopathic pericarditis Annual physical exam Hyperlipemia HTN (hypertension) DM (diabetes mellitus) Liver cyst Hemangioma Fatty liver Colitis Microscopic hematuria Thyroid nodule Right bundle branch block Pericardial effusion Surgical History S/P pericardial window creation Hx of colonoscopy Family History Father HTN (hypertension) Mother HTN (hypertension) Sister HTN (hypertension) Pericarditis Maternal Grandfather Cerebral aneurysm Maternal Grandmother Stroke Paternal Grandfather Emphysema, unspecified Paternal Grandmother Diabetes mellitus Brother S/P triple vessel bypass Brother No problems noted. 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 1. Little interest or pleasure in doing things: not at all 2. Feeling down, depressed, or hopeless: not at all 3. Trouble falling or staying asleep, or sleeping too much: not at all 4. Feeling tired or having little energy: not at all 5. Poor appetite or overeating: not at all 6. Feeling bad about yourself - or that you are a failure or have let yourself or your family down: not at all 7. Trouble concentrating on things, such as reading the newspaper or watching television: not at all 8. Moving or speaking so slowly that other people could have noticed. Or the opposite - being so fidgety or restless that you have been moving around a lot more than usual: not at all 9. Thoughts that you would be better off or of hurting yourself in some way: not at all Total score: 0 Depression Screening Interpretation: Negative Depression Screening Done: Yes 32254 - PHQ-9 Billing: Yes Source: Developed by Drs. Samir Lemons, Debora Collins, Michele Alexis and colleagues, with an educational tamara from [employer]. Thrive Questionnaire Date Thrive assessed: 12/31/24 I am a: Patient What is your living situation today?: I have a steady place to live Within the past 12 months, did the food you bought not last and you didn't have the money to get more?: Never true Within the past 12 months, did you worry whether your food would run out before you got money to buy more?: Never true Do you have trouble paying for medicines?: No Do you have trouble getting transportation to medical appointments?: No Do you have trouble paying your heating and electricity bill?: No Do you have trouble taking care of your child, family member or friend?: No Do you have trouble with day-to-day activities such as bathing, preparing meals, shopping, managing finances, etc.?: No Are you currently unemployed and looking for a job?: No Are you interested in more education?: No Please select the resources that you would like help with: None Currently or been in a relationship where the following occur: No concerns reported THRIVE Score: 0 AUDIT C Alcohol Use Questionnaire (AUDIT-C) 1. How often do you have a drink containing alcohol?: Never 3. How often do you have six or more drinks on one occasion?: Never Total Score: 0 Score Reviewed/Action Taken: Yes JOSE J-7 AMB Questionnaire JOSE J-7 Date JOSE J - 7 assessed: 12/31/24 Feeling nervous, anxious, or on edge: 0 = Not at all Not being able to stop or control worryin = Not at all Worrying too much about different things: 0 = Not at all Trouble relaxin = Not at all Being so restless that it is hard to sit still: 0 = Not at all Becoming easily annoyed or irritable: 0 = Not at all Feeling afraid as if something awful might happen: 0 = Not at all Total JOSE J-7 score (0-4 normal; 5-9 mild; 10-14 moderate; 15-21 severe): 0 Source: Developed by Drs. Samir Lemons, Debora Collins, Michele Alexis and colleagues, with an educational tamara from [employer]. JOSE J-7 Assessment Billing JOSE J-7 Assessment Tool: JOSE J-7 Assessment 18480 Review of Systems Const All systems reviewed & are unremarkable except as noted in HPI and below Eyes Reports no additional complaints ENT Reports no additional complaints Card Reports no additional complaints Resp Reports no additional complaints GI Reports no additional complaints Reports no additional complaints Physical exam (Primary Care) Vital Signs: Last Vital Signs Pulse 79 12/31/24 12:28 BP 118/78 12/31/24 12:28 Pulse Ox 97 12/31/24 12:28 Oxygen Delivery Method Room Air 12/31/24 12:28 BMI result Body Mass Index 29.5 Tobacco/Smoking Status: Tobacco use Status Tobacco use date assessed 12/31/24 12/31/24 12:30 Patient Tobacco Use Status Never used Tobacco 12/31/24 12:30 e-Cigarette/Vaping Use Never Used 12/31/24 12:30 PHQ-9: PHQ-9 Score PHQ-9: Total score 0 12/31/24 12:43 Depression Screening Interpretation: Negative Thrive Assessment: Date of Thrive Assessment Date Thrive assessed 12/31/24 12/31/24 12:30 Currently or been in a relationship where the following occur: No concerns reported Const General: no acute distress HENMT Head: Yes normal to inspection Mouth: Normal oral and palatal mucosa present Eyes General: appearance normal, both eyes and all related structures Resp Effort & Inspection: normal respiratory effort Auscultation: clear to auscultation bilaterally Cardio Rhythm: regular rhythm Heart sounds: S1 normal heart sound present and S2 normal heart sound present GI Inspection: Yes normal to inspection Palpation (GI): Soft to palpation Percussion: Yes normal to percussion Extrem Other: Significantly decreased range of motion of left hip Immunizations pneumoc 20-jus conj-dip cr(PF) 0.5 mL IM syringe Performing Provider: Misa Clemons MD [place] [facility] [place] [facility] Administered by: AARON Loyd on 12/31/24 12:53 Dose Route Admin Location Dispensed Lot Number Expiration Date [facility] 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 0.5 mL IM Left Deltoid 0.5 mL [id number] 03/01/26 [id number] WYETH/PFIZER VIS Given Date VIS Provided VIS Publication Date 12/31/24 Single Vaccine 21 Eligibility Eligibility Date Funding Source Not [facility] Eligible 12/31/24 Private Coding Level of Care Code Est Pt Level 4 (12369) Diagnoses Hip pain, left M25.552 DM (diabetes mellitus) E11.9 HTN (hypertension) I10 Hyperlipemia E78.5 Additional Codes JOSE J-7 Assessment Billing - JOSE J-7 Assessment Tool: JOSE J-7 Assessment 54494 ([id number]) PHQ-9 - 71274 - PHQ-9 Billing: Yes ([id number]) Assessment & Plan Assessment & Plan (1) Hip pain, left: Code(s): M25.552 - Pain in left hip Category: Medical Plan: check XR and follow-up with ortho (2) DM (diabetes mellitus): Comment: Pneumovax 12/2024 Code(s): E11.9 - Type 2 diabetes mellitus without complications Category: Medical Plan: A1c is 6.7, ADA diet increase physical activity weight loss discussed with the patient metformin will be increased to 1500 mg a day and patient will follow-up in 3 months with a fasting labs before (3) HTN (hypertension): Code(s): I10 - Essential (primary) hypertension Category: Medical Plan: Continue olmesartan (4) Hyperlipemia: Code(s): E78.5 - Hyperlipidemia, unspecified Category: Medical Plan: Continue statin Orders: Orders Complete Blood Count Auto Diff 3 Months E11.9 - Type 2 diabetes mellitus without complications, E78.5 - Hyperlipidemia, unspecified, I10 - Essential (primary) hypertension XR hip LT min 2V Today M25.552 - Pain in left hip Pneumococcal 20 Immunization Today Z23 - Encounter for immunization Comprehensive [place]. Panel Fast 3 Months E11.9 - Type 2 diabetes mellitus without complications, E78.5 - Hyperlipidemia, unspecified, I10 - Essential (primary) hypertension Hemoglobin A1c 3 Months E11.9 - Type 2 diabetes mellitus without complications, E78.5 - Hyperlipidemia, unspecified, I10 - Essential (primary) hypertension Lipid Panel 3 Months E11.9 - Type 2 diabetes mellitus without complications, E78.5 - Hyperlipidemia, unspecified, I10 - Essential (primary) hypertension Microalbumin, Random (w Creat) 3 Months E11.9 - Type 2 diabetes mellitus without complications, E78.5 - Hyperlipidemia, unspecified, I10 - Essential (primary) hypertension Medications: New meloxicam 15 mg PO DAILY 14 tabs 0RF Changed From metformin 500 mg PO BID 180 tabs 3RF To metformin 1 tabl in AM , 2 tab q PM orally 2 times a day; 270 tabs 3RF
--- OUTSIDE RECORDS SUMMARY | 2024-12-31 14:33 | XMS_ITS | Patient Health Record ---
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 Name Role Phone Misa Clemons MD Primary Care Provider Chioa Samir Byrne Unavailable [phone] Reason For Referral No Information Medications Medication SIG (Take, Route, Frequency, Duration) Notes Start Date End Date Status Apriso 0.375 GM 4 capsules in the mo rning Orally Once a day for 30 day(s) 02/09/2021 Active Mesalamine 1000 MG USE 1 SUPPOSITORY AT BEDTIME RECTALLY FOR 30 DAYS for 30 Active [place] 3 1000 MG 1 capsule Orally Onc e a day for 30 day(s) Active Multivitamin - 1 tablet Orally Once a day for 30 day(s) Active Olmesartan Medoxomil 5 MG TAKE 1 TABLET BY MOUTH EVERY DAY Oral for 30 Active dilTIAZem HCl ER Coated Beads 300 MG TAKE 1 CAPSULE BY MOUTH EVERY DAY Oral for 30 Active Atorvastatin Calcium 40 MG TAKE 1 TABLET BY MOUTH EVERY DAY Oral for 30 Active metFORMIN HCl ER 500 MG TAKE 1 TABLET BY MOUTH EVERY DAY IN THE EVENING WITH FOOD Oral for 30 Active Immunizations Vaccine Route Administration Date Status Comme nts Influenza Unknown 06/02/2019 Administered Problems Problem Type SNOMED Code ICD Code Onset Dates Problem Status W/U Status Risk Notes Problem 457413998 Encounter for screening for malignant neoplasm of colon (Z12.11) Active confirmed Problem 66621573 Abdominal pain, epigastric (R10.13) Active confirmed Problem 18279941 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 [address] [place], [place] [id number] [phone] [id number] BRII AGUILAR Self - patient is the insured Medical (General) History Medical History History ICD Code Ulcerative colitis--this was diagnosed with a flexible sigmoidoscopy in 1994-this revealed only a distal proctitis that was treated successfully with mesalamine suppositories-her only colonoscopy was in April of 2009--this revealed changes of a relatively mild colitis involving the rectum and sigmoid colon, and biopsies throughout the colon were negative for dysplasia. She has never required steroids. She was put on some Apriso in July of 2016 through October of 2016 Denies [place],CVA,Lung disease,renal disease Kidney stones- ESWL, cystoscopy and sten ts 04/2015--colonoscopy revealed a mild distal proctitis--biopsies were all negative for dysplasia--there was some microscopic evidence of colitis throughout the colon. There was no evidence of any tubular adenomas. Negative abdominal ultrasound in July 2016. Pericarditis-s/p pericardial window--201 7 NIDDM HTN Surgical History Surgery Date(Month/Year) Pericardial window 2016
== END 2024-12-31 12:57 | disposition home or self-care (01) ==
LOC: HO.HMCC 12:20
PROVIDERS: PCP Internal Medicine; Visit Provider Internal Medicine
DX: M25.552 Pain in left hip (principal); E11.9 Type 2 diabetes mellitus without complications; I10 Essential (primary) hypertension; E78.5 Hyperlipidemia, unspecified; Z23 Encounter for immunization

== ENCOUNTER → 2024-12-31 13:13 | Outpatient (BNV) | payer OTHER, SELFPAY | PROVIDERS: PCP Internal Medicine; Visit Provider Radiology Diagnostic Radiology | DX: M16.12 Unilateral primary osteoarthritis, left hip (principal) | CPT/HCPCS: 73502 ==

== ENCOUNTER 2025-03-28 08:52 | Outpatient (REF) | payer OTHER, SELFPAY ==
--- OUTSIDE RECORDS SUMMARY | 2025-03-28 09:07 | XMS_ITS | Patient Health Record ---
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 Name Role Phone Misa Clemons MD Primary Care Provider Chioa Samir Byrne Unavailable [phone] Reason For Referral No Information Medications Medication SIG (Take, Route, Frequency, Duration) Notes Start Date End Date Status Apriso 0.375 GM 4 capsules in the mo rning Orally Once a day for 30 day(s) 02/09/2021 Active Mesalamine 1000 MG USE 1 SUPPOSITORY AT BEDTIME RECTALLY FOR 30 DAYS for 30 Active [place] 3 1000 MG 1 capsule Orally Onc [...] Problem Status W/U Status Risk Notes Problem 134641714 Encounter for screening for malignant neoplasm of colon (Z12.11) Active confirmed Problem 16667595 Abdominal pain, epigastric (R10.13) Active confirmed Problem 82942975 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) Active confirmed Problem 56605809 Diarrhea, unspecified type (R19.7) Active confirmed Problem 86354737 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) Active confirmed Plan Of Treatment Future Test Test Name Order Date COLONOSCOPY 01/20/2015 COLONOSCOPY 05/21/2020 Insurance Providers Payer Name Payer Address Payer Phone Subscriber Number Group Number Insured Name Patient Relationship to Insured Coverage Start Date Coverage End Date [facility] [address] [place], [place] [id number] BRII AGUILAR Self - patient is the [...] of 2016 through October of 2016 Denies [place],CVA,Lung disease,renal disease Kidney stones- ESWL, cystoscopy and sten ts 04/2015--colonoscopy revealed a mild distal proctitis--biopsies were all negative for dysplasia--there was some microscopic evidence of colitis throughout the colon. There was no evidence of any tubular adenomas. Negative abdominal ultrasound in July 2016. Pericarditis-s/p pericardial window--201 7 NIDDM HTN Surgical History Surgery Date(Month/Year) Pericardial window 2016
[2025-03-28 10:27] LABS: MANUAL DIFF FLAG NO
[2025-03-28 10:39] LABS: Basophils Absolute Auto 0.1 X10*3/uL (0.0-0.2); Basophils Percent Auto 0.8 % (0-2); Eosinophils Absolute Auto 0.4 X10*3/uL (0.0-0.4); Eosinophils Percent Auto 5.3 % (0-4); Hematocrit 38.5 % (37.0-47.0); Hemoglobin 12.6 g/dl (12.0-16.0); Imm Gran Abs Auto 0.02 X10*3/uL (0.00-0.03); Imm Gran Pct Auto 0.3 % (0.0-0.4); Lymphocytes Absolute Auto 2.2 X10*3/uL (1.2-4.9); Lymphocytes Percent Auto 33.1 % (20-40); Mean Corpuscular HGB Conc 32.7 g/dl (31.0-35.0); Mean Corpuscular Hemoglobin 31.3 pg (27.0-33.0); Mean Corpuscular Volume 95.5 fL (80.0-98.0); Mean Platelet Volume 10.4 fL (9.4-12.3); Monocytes Absolute Auto 0.6 X10*3/uL (0.1-1.2); Monocytes Percent Auto 8.7 % (2-11); Neutrophils Absolute Auto 3.4 x10*3/uL (2.0-8.3); Neutrophils Percent Auto 51.8 % (45-73); Platelet Count 301 X10*3/uL (160-400); Red Blood Count 4.03 X10*6/uL (4.20-5.50); Red Cell Distribution Width 12.8 % (11.0-16.0); White Blood Count 6.6 X10*3/uL (4.8-10.8)
[2025-03-28 10:46] LABS: Estimated Average Glucose 137 mg/dL; Hemoglobin A1C 156.9832 umol/L; Hemoglobin A1c % 6.4 % (<6.0)
[2025-03-28 11:02] LABS: Alanine Aminotransferase 28 U/L (0-31); Albumin Level 4.5 g/dL (3.5-5.0); Alkaline Phosphatase 60 U/L (39-117); Anion Gap 13 (12-20); Aspartate Amino Transferase 22 U/L (5-31); Bilirubin Total 0.4 mg/dL (0.0-1.0); Blood Urea Nitrogen 20 mg/dL (9-16); Calcium 9.5 mg/dL (8.4-10.2); Carbon Dioxide 24 mmol/L (22-29); Chloride 106 mmol/L (96-108); Cholesterol 117 mg/dL (<200); Estimated Glomerular Filt Rate > 60; Glucose Fasting 94 mg/dL (60-99); HDL Cholesterol 40 mg/dL (>40); LDL Cholesterol Calculated 60 mg/dL (<100); Potassium 3.9 mmol/L (3.3-5.1); Sodium 139 mmol/L (135-145); Triglycerides 87 mg/dL (<150)
== END 2025-03-28 08:53 | disposition home or self-care (01) ==
LOC: HO.HMGCLDS 08:52
PROVIDERS: PCP Internal Medicine; Visit Provider Internal Medicine
DX: I10 Essential (primary) hypertension (principal); E11.9 Type 2 diabetes mellitus without complications; E78.5 Hyperlipidemia, unspecified
CPT/HCPCS: 36415; 80053; 80061; 82043; 82570; 83036; 85025

== ENCOUNTER 2025-04-02 08:59 | Outpatient (REF) | payer OTHER, SELFPAY ==
--- NOTE | ~2025-04-02 | XR_ITS ---
EXAMINATION: XR RIBS, LEFT CLINICAL INFORMATION: R07.81 - Pleurodynia COMPARISON: November 08 2023 TECHNIQUE: PA chest x-ray with AP and oblique views of the left ribs were obtained. FINDINGS: Lungs are clear. No consolidation, pneumothorax, or pleural effusion. The cardiomediastinal silhouette and pulmonary vasculature are normal. Osseous structures are unremarkable. Ribs are intact. No fractures are identified. XR/XR ribs LT min 3V w CXR1V IMPRESSION: Unremarkable examination. Electronically signed by: Ronni Garcia MD 04/02/2025 05:41 PM EDT
--- OUTSIDE RECORDS SUMMARY | 2025-04-02 09:59 | XMS_ITS | Patient Health Record ---
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 Name Role Phone Misa Clemons MD Primary Care Provider Chioa Samir Byrne Unavailable [phone] Reason For Referral No Information Medications Medication SIG (Take, Route, Frequency, Duration) Notes Start Date End Date Status Apriso 0.375 GM 4 capsules in the mo rning Orally Once a day for 30 day(s) 02/09/2021 Active Mesalamine 1000 MG USE 1 SUPPOSITORY AT BEDTIME RECTALLY FOR 30 DAYS for 30 Active Bellaire 3 1000 MG 1 capsule Orally Onc [...] Problem Status W/U Status Risk Notes Problem [id number] Encounter for screening for malignant neoplasm of colon (Z12.11) Active confirmed Problem 47779810 Abdominal pain, epigastric (R10.13) Active confirmed Problem 44181967 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) Active confirmed Problem 63142292 Diarrhea, unspecified type (R19.7) Active confirmed Problem 12281863 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) Active confirmed Plan Of Treatment Future Test Test Name Order Date COLONOSCOPY 01/20/2015 COLONOSCOPY 05/21/2020 Insurance Providers Payer Name Payer Address Payer Phone Subscriber Number Group Number Insured Name Patient Relationship to Insured Coverage Start Date Coverage End Date [facility] [address] [place], [place] [id number] [phone] [id number] BRII AGUILAR Self - patient is the [...] of 2016 through October of 2016 Denies [place],CVA,Lung disease,renal disease Kidney stones- ESWL, cystoscopy and sten ts 04/2015--colonoscopy revealed a mild distal proctitis--biopsies were all negative for dysplasia--there was some microscopic evidence of colitis throughout the colon. There was no evidence of any tubular adenomas. Negative abdominal ultrasound in July 2016. Pericarditis-s/p pericardial window--201 7 NIDDM HTN Surgical History Surgery Date(Month/Year) Pericardial window 2016
== END 2025-04-02 09:00 | disposition home or self-care (01) ==
LOC: HO.HMGCX 08:59
PROVIDERS: PCP Internal Medicine; Visit Provider Internal Medicine
DX: R07.81 Pleurodynia (principal); M25.552 Pain in left hip; E11.9 Type 2 diabetes mellitus without complications; I10 Essential (primary) hypertension; E78.5 Hyperlipidemia, unspecified
CPT/HCPCS: 71101

== ENCOUNTER 2025-04-02 08:59 | Outpatient (AMB) | payer OTHER, SELFPAY ==
[2025-04-02 09:01] VITALS: BP 130/78; PULSE 73; RESP 18; TEMP 36.6; O2SAT 98; BMI 28.9
--- NOTE | 2025-04-02 09:01 | MHC.PC.OV ---
Vital Signs 04/02/25 09:01 Height 5 ft Weight 148 lb BMI 28.9 BP 130/78 Blood Pressure Location Lt brachial Position Sitting Respiration 18 Pulse 73 Pulse Source Pulse Oximeter Temp 97.9 F Temp Source Oral Pulse Oximetry (%) 98 Oxygen Delivery Method Room Air Intake Visit Reasons: 3 months f/up Intake Note: Pt is here today for 3 months follow up visit. Allergies No Known Allergies Allergy (Verified 04/02/25 09:01) Medication List - Last Reconciled 04/02/25 by Misa Clemons MD acetaminophen 1,000 mg (2 x 500 mg) PO Q6H PRN atorvastatin 40 mg PO DAILY blood sugar diagnostic ([employer] Ultra Test strips) 1 strip miscellaneous DAILY blood-glucose meter (Xum[employer] Ultra2 Meter) QD lancets (S[employer] Delica Lancets) Daily to test blood sugar metformin 1 tabl in AM , 2 tab q PM orally 2 times a day; olmesartan 15 mg (3 x 5 mg) PO DAILY 90 days Tobacco use date assessed: 04/02/25 Dental Screening Dental Screen Date: 12/31/24 HPI 3 months f/up HPI Details Patient presents for the follow-up on hypertension hyperlipidemia type 2 diabetes stable on current medications. Patient complains of left lower rib pain on and off for 3 months positional worse when lying on the left side. Patient denies any injury abdominal pain nausea vomiting pleurisy fever chills or cough PFSH Medical History Hx of mammogram Hip pain, left Recurrent idiopathic pericarditis Annual physical exam Hyperlipemia HTN (hypertension) DM (diabetes mellitus) Liver cyst Hemangioma Fatty liver Colitis Microscopic hematuria Thyroid nodule Right bundle branch block Pericardial effusion Surgical History S/P pericardial window creation Hx of colonoscopy Family History Father HTN (hypertension) Mother HTN (hypertension) Sister HTN (hypertension) Pericarditis Maternal Grandfather Cerebral aneurysm Maternal Grandmother Stroke Paternal Grandfather Emphysema, unspecified Paternal Grandmother Diabetes mellitus Brother S/P triple vessel bypass Brother No problems noted. 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 Housing: House Patient Tobacco Use Status: Never used Tobacco e-Cigarette/Vaping Use: Never Used Second Hand Smoke Exposure: No service: No Current occupational status: employed Cognitive needs: No Hearing needs: No Vision needs: Yes Questionnaire Thrive Questionnaire Date Thrive assessed: 12/31/24 I am a: Patient What is your living situation today?: I have a steady place to live Within the past 12 months, did the food you bought not last and you didn't have the money to get more?: Never true Within the past 12 months, did you worry whether your food would run out before you got money to buy more?: Never true Do you have trouble paying for medicines?: No Do you have trouble getting transportation to medical appointments?: No Do you have trouble paying your heating and electricity bill?: No Do you have trouble taking care of your child, family member or friend?: No Do you have trouble with day-to-day activities such as bathing, preparing meals, shopping, managing finances, etc.?: No Are you currently unemployed and looking for a job?: No Are you interested in more education?: No Please select the resources that you would like help with: None Currently or been in a relationship where the following occur: No concerns reported THRIVE Score: 0 AUDIT C Alcohol Use Questionnaire (AUDIT-C) 2. How many drinks containing alcohol do you have on a typical day when you are drinking?: 1 or 2 Total Score: 0 JOSE J-7 AMB Questionnaire JOSE J-7 Date JOSE J - 7 assessed: 12/31/24 Source: Developed by Drs. Samir Lemons, Debora Collins, Michele Alexis and colleagues, with an educational tamara from [employer]. Review of Systems Const All systems reviewed & are unremarkable except as noted in HPI and below Eyes Reports no additional complaints ENT Reports no additional complaints Card Reports no additional complaints Resp Reports no additional complaints GI Reports no additional complaints Reports no additional complaints Physical exam (Primary Care) Vital Signs: Last Vital Signs Temp 97.9 F 04/02/25 09:01 Pulse 73 04/02/25 09:01 Resp 18 04/02/25 09:01 BP 130/78 04/02/25 09:01 Pulse Ox 98 04/02/25 09:01 Oxygen Delivery Method Room Air 04/02/25 09:01 BMI result Body Mass Index 28.9 Tobacco/Smoking Status: Tobacco use Status Tobacco use date assessed 04/02/25 04/02/25 09:08 Patient Tobacco Use Status Never used Tobacco 04/02/25 09:08 e-Cigarette/Vaping Use Never Used 04/02/25 09:08 Thrive Assessment: Date of Thrive Assessment Date Thrive assessed 12/31/24 04/02/25 09:08 Currently or been in a relationship where the following occur: No concerns reported Const General: no acute distress HENMT Head: Yes normal to inspection Face and sinus: Yes normal facial exam Throat: Yes posterior oropharynx normal Eyes General: appearance normal, both eyes and all related structures Neck Neck: Yes supple Chest Chest palpation & inspection: localized rib tenderness with anteroposterior compression (Left lower ribs) Resp Effort & Inspection: normal respiratory effort Auscultation: clear to auscultation bilaterally Cardio Rhythm: regular rhythm Heart sounds: S1 normal heart sound present and S2 normal heart sound present GI Inspection: Yes normal to inspection Palpation (GI): Soft to palpation Percussion: Yes normal to percussion Auscultation: normal bowel sounds Coding Level of Care Code Est Pt Level 4 (67646) Complex EM visit Add On G2211 Diagnoses Rib pain on left side R07.81 DM (diabetes mellitus) E11.9 HTN (hypertension) I10 Hyperlipemia E78.5 Assessment & Plan Assessment & Plan (1) Rib pain on left side: Code(s): R07.81 - Pleurodynia Category: Medical Plan: Obtain x-rays of loss lower ribs, meloxicam for 10 days is prescribed if symptoms persist patient was advised to use lidocaine patch or try gabapentin (2) DM (diabetes mellitus): Comment: Pneumovax 12/2024 Code(s): E11.9 - Type 2 diabetes mellitus without complications Category: Medical Plan: A1c is 6.4, continue ADA diet regular physical activity current medications follow-up in 3 months with a fasting labs before (3) HTN (hypertension): Code(s): I10 - Essential (primary) hypertension Category: Medical Plan: Continue current medications (4) Hyperlipemia: Code(s): E78.5 - Hyperlipidemia, unspecified Category: Medical Plan: Continue statin Orders: Orders Microalbumin, Random (w Creat) 3 Months E11.9 - Type 2 diabetes mellitus without complications, E78.5 - Hyperlipidemia, unspecified, I10 - Essential (primary) hypertension TSH reflex Free T4 3 Months E11.9 - Type 2 diabetes mellitus without complications, E78.5 - Hyperlipidemia, unspecified, I10 - Essential (primary) hypertension XR ribs LT min 3V w CXR1V Today R07.81 - Pleurodynia Comprehensive [place]. Panel Fast 3 Months E11.9 - Type 2 diabetes mellitus without complications, E78.5 - Hyperlipidemia, unspecified, I10 - Essential (primary) hypertension Complete Blood Count Auto Diff 3 Months E11.9 - Type 2 diabetes mellitus without complications, E78.5 - Hyperlipidemia, unspecified, I10 - Essential (primary) hypertension Lipid Panel 3 Months E11.9 - Type 2 diabetes mellitus without complications, E78.5 - Hyperlipidemia, unspecified, I10 - Essential (primary) hypertension Hemoglobin A1c 3 Months E11.9 - Type 2 diabetes mellitus without complications, E78.5 - Hyperlipidemia, unspecified, I10 - Essential (primary) hypertension Medications: New pyridoxine (vitamin B6) (Vitamin B-6) 100 mg PO DAILY 90 tabs 2RF meloxicam 15 mg PO DAILY 14 tabs 0RF
== END 2025-04-02 10:06 | disposition home or self-care (01) ==
LOC: HO.HMCC 09:00
PROVIDERS: PCP Internal Medicine; Visit Provider Internal Medicine
DX: R07.81 Pleurodynia (principal); E11.9 Type 2 diabetes mellitus without complications; I10 Essential (primary) hypertension; E78.5 Hyperlipidemia, unspecified

== ENCOUNTER → 2025-04-02 09:42 | Outpatient (BNV) | payer OTHER, SELFPAY | PROVIDERS: PCP Internal Medicine; Visit Provider Radiology Diagnostic Radiology | DX: R07.81 Pleurodynia (principal) | CPT/HCPCS: 71101 ==

== ENCOUNTER 2025-07-02 07:23 | Outpatient (REF) | payer OTHER, SELFPAY ==
--- OUTSIDE RECORDS SUMMARY | 2025-07-02 07:26 | XMS_ITS | Patient Health Record ---
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 Name Role Phone Misa Clemons MD Primary Care Provider Chioa Samir Byrne Unavailable [phone] Reason For Referral No Information Medications Medication SIG (Take, Route, Frequency, Duration) Notes Start Date End Date Status Apriso 0.375 GM 4 capsules in the mo rning Orally Once a day for 30 day(s) 02/09/2021 Active Mesalamine 1000 MG USE 1 SUPPOSITORY AT BEDTIME RECTALLY FOR 30 DAYS for 30 Active Chloride 3 1000 MG 1 capsule Orally Onc [...] Problem Status W/U Status Risk Notes Problem [id number] Encounter for screening for malignant neoplasm of colon (Z12.11) Active confirmed Problem 90526103 Abdominal pain, epigastric (R10.13) Active confirmed Problem 83008157 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) Active confirmed Problem 56180684 Diarrhea, unspecified type (R19.7) Active confirmed Problem 56135438 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) Active confirmed Plan Of Treatment Future Test Test Name Order Date COLONOSCOPY 01/20/2015 COLONOSCOPY 05/21/2020 Insurance Providers Payer Name Payer Address Payer Phone Subscriber Number Group Number Insured Name Patient Relationship to Insured Coverage Start Date Coverage End Date [facility] [address] [place], [place] [id number] BRII AGUILAR Self - patient is the [...] of 2016 through October of 2016 Denies [place],CVA,Lung disease,renal disease Kidney stones- ESWL, cystoscopy and sten ts 04/2015--colonoscopy revealed a mild distal proctitis--biopsies were all negative for dysplasia--there was some microscopic evidence of colitis throughout the colon. There was no evidence of any tubular adenomas. Negative abdominal ultrasound in July 2016. Pericarditis-s/p pericardial window--201 7 NIDDM HTN Surgical History Surgery Date(Month/Year) Pericardial window 2016
[2025-07-02 07:36] LABS: MANUAL DIFF FLAG NO
[2025-07-02 08:21] LABS: Hematocrit 39.9 % (37.0-47.0); Hemoglobin 13.4 g/dl (12.0-16.0); Imm Gran Abs Auto 0.03 X10*3/uL (0.00-0.03); Imm Gran Pct Auto 0.4 % (0.0-0.4); Lymphocytes Absolute Auto 3.0 X10*3/uL (1.2-4.9); Mean Corpuscular HGB Conc 33.6 g/dl (31.0-35.0); Mean Corpuscular Hemoglobin 31.3 pg (27.0-33.0); Mean Corpuscular Volume 93.2 fL (80.0-98.0); NRBC Abs Auto 0.000 X10*3/uL (0.0-0.012); NRBC Pct Auto 0.0 /100WBC (0.0-0.2); Platelet Count 309 X10*3/uL (160-400); Red Blood Count 4.28 X10*6/uL (4.20-5.50); White Blood Count 7.8 X10*3/uL (4.8-10.8)
[2025-07-02 08:59] LABS: Microalbum/Creatinine Ratio Ur 15.4 ug/mg cr (<30)
[2025-07-02 09:05] LABS: Alanine Aminotransferase 36 U/L (0-31); Albumin Level 4.9 g/dL (3.5-5.0); Alkaline Phosphatase 72 U/L (39-117); Anion Gap 13 (12-20); Aspartate Amino Transferase 31 U/L (5-31); Blood Urea Nitrogen 23 mg/dL (9-16); Calcium 10.1 mg/dL (8.4-10.2); Carbon Dioxide 24 mmol/L (22-29); Chloride 106 mmol/L (96-108); Cholesterol 136 mg/dL (<200); Estimated Glomerular Filt Rate 56; HDL Cholesterol 41 mg/dL (>40); Potassium 4.0 mmol/L (3.3-5.1); Sodium 139 mmol/L (135-145); Total Protein 7.3 g/dL (6.5-8.0); Triglycerides 126 mg/dL (<150)
== END 2025-07-02 07:24 | disposition home or self-care (01) ==
LOC: HO.LAB 07:23
PROVIDERS: PCP Internal Medicine; Visit Provider Internal Medicine
DX: I10 Essential (primary) hypertension (principal); E11.9 Type 2 diabetes mellitus without complications; E78.5 Hyperlipidemia, unspecified
CPT/HCPCS: 36415; 80053; 80061; 82043; 82570; 83036; 84443; 85025

== ENCOUNTER 2025-07-04 09:21 | Outpatient (AMB) | payer OTHER, SELFPAY ==
--- NOTE | 2025-07-04 09:22 | A.OFFPC_ITS ---
Vital Signs 07/04/25 09:23 Height 5 ft Weight 144 lb BMI 28.1 BP 118/76 Blood Pressure Location Lt brachial Position Sitting Respiration 18 Pulse 85 Pulse Source Pulse Oximeter Temp 98.0 F Temp Source Oral Pulse Oximetry (%) 97 Oxygen Delivery Method Room Air Intake Visit Reasons: 3m follow up Intake Note: Pt is here today for 3 months follow up visit. Allergies No Known Allergies Allergy (Verified 07/04/25 09:26) Medication List - Last Reconciled 07/04/25 by Misa Clemons MD acetaminophen 1,000 mg (2 x 500 mg) PO Q6H PRN atorvastatin 40 mg PO DAILY blood sugar diagnostic (Agendauch Ultra Test strips) 1 strip miscellaneous DAILY blood-glucose meter (Agendauch Ultra2 Meter) QD Jardiance (empagliflozin) 10 mg PO DAILY NS lancets (Agendauch Delica Lancets) Daily to test blood sugar metformin 1 tabl in AM , 2 tab q PM orally 2 times a day; olmesartan 15 mg (3 x 5 mg) PO DAILY 90 days pyridoxine (vitamin B6) (Vitamin B-6) 100 mg PO DAILY Tobacco use date assessed: 07/04/25 Dental Screening Dental Screen Date: 12/31/24 HPI 3m follow up HPI Details Presents for the follow-up on type 2 diabetes hyperlipidemia and hypertension. [facility] Medical History Hx of mammogram Hip pain, left Recurrent idiopathic pericarditis Annual physical exam Hyperlipemia HTN (hypertension) DM (diabetes mellitus) Liver cyst Hemangioma Fatty liver Colitis Microscopic hematuria Thyroid nodule Right bundle branch block Pericardial effusion Surgical History S/P pericardial window creation Hx of colonoscopy Family History Father HTN (hypertension) Mother HTN (hypertension) Sister HTN (hypertension) Pericarditis Maternal Grandfather Cerebral aneurysm Maternal Grandmother Stroke Paternal Grandfather Emphysema, unspecified Paternal Grandmother Diabetes mellitus Brother S/P triple vessel bypass Brother No problems noted. 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 1. Little interest or pleasure in doing things: not at all 2. Feeling down, depressed, or hopeless: not at all 3. Trouble falling or staying asleep, or sleeping too much: not at all 4. Feeling tired or having little energy: not at all 5. Poor appetite or overeating: not at all 6. Feeling bad about yourself - or that you are a failure or have let yourself or your family down: not at all 7. Trouble concentrating on things, such as reading the newspaper or watching television: not at all 8. Moving or speaking so slowly that other people could have noticed. Or the opposite - being so fidgety or restless that you have been moving around a lot more than usual: not at all 9. Thoughts that you would be better off or of hurting yourself in some way: not at all Total score: 0 Depression Screening Interpretation: Negative Depression Screening Done: Yes Source: Developed by Drs. Samir Lemons, Debora Collins, Michele Alexis and colleagues, with an educational tamara from [employer]. Thrive Questionnaire Date Thrive assessed: 12/31/24 I am a: Patient What is your living situation today?: I have a steady place to live Within the past 12 months, did the food you bought not last and you didn't have the money to get more?: Never true Within the past 12 months, did you worry whether your food would run out before you got money to buy more?: Never true Do you have trouble paying for medicines?: No Do you have trouble getting transportation to medical appointments?: No Do you have trouble paying your heating and electricity bill?: No Do you have trouble taking care of your child, family member or friend?: No Do you have trouble with day-to-day activities such as bathing, preparing meals, shopping, managing finances, etc.?: No Are you currently unemployed and looking for a job?: No Are you interested in more education?: No Please select the resources that you would like help with: None Currently or been in a relationship where the following occur: No concerns reported THRIVE Score: 0 JOSE J-7 AMB Questionnaire JOSE J-7 Date JOSE J - 7 assessed: 12/31/24 Feeling nervous, anxious, or on edge: 0 = Not at all Not being able to stop or control worryin = Not at all Worrying too much about different things: 0 = Not at all Trouble relaxin = Not at all Being so restless that it is hard to sit still: 0 = Not at all Becoming easily annoyed or irritable: 0 = Not at all Feeling afraid as if something awful might happen: 0 = Not at all Total JOSE J-7 score (0-4 normal; 5-9 mild; 10-14 moderate; 15-21 severe): 0 Source: Developed by Drs. Samir Lemons, Debora Collins, Michele Alexis and colleagues, with an educational tamara from [employer]. Review of Systems Const All systems reviewed & are unremarkable except as noted in HPI and below Eyes Reports no additional complaints ENT Reports no additional complaints Card Reports no additional complaints Resp Reports no additional complaints GI Reports no additional complaints Reports no additional complaints Physical exam (Primary Care) Vital Signs: Last Vital Signs Temp 98.0 F 07/04/25 09:23 Pulse 85 07/04/25 09:23 Resp 18 07/04/25 09:23 BP 118/76 07/04/25 09:23 Pulse Ox 97 07/04/25 09:23 Oxygen Delivery Method Room Air 07/04/25 09:23 BMI result Body Mass Index 28.1 Tobacco/Smoking Status: Tobacco use Status Tobacco use date assessed 07/04/25 07/04/25 09:30 Patient Tobacco Use Status Never used Tobacco 07/04/25 09:22 e-Cigarette/Vaping Use Never Used 07/04/25 09:22 PHQ-9: PHQ-9 Score PHQ-9: Total score 0 07/04/25 09:51 Depression Screening Interpretation: Negative Thrive Assessment: Date of Thrive Assessment Date Thrive assessed 12/31/24 07/04/25 09:22 Currently or been in a relationship where the following occur: No concerns reported Const General: no acute distress HENMT Head: Yes normal to inspection Ears: TM's normal bilaterally Face and sinus: Yes normal facial exam Mouth: Normal oral and palatal mucosa present Throat: Yes posterior oropharynx normal Eyes General: appearance normal, both eyes and all related structures Neck Neck: Yes no lymphadenopathy and Yes supple Resp Effort & Inspection: normal respiratory effort Auscultation: clear to auscultation bilaterally Cardio Rhythm: regular rhythm Heart sounds: S1 normal heart sound present and S2 normal heart sound present GI Inspection: Yes normal to inspection Palpation (GI): Soft to palpation Percussion: Yes normal to percussion Auscultation: normal bowel sounds Coding Level of Care Code Est Pt Level 4 (91443) Diagnoses DM (diabetes mellitus) E11.9 HTN (hypertension) I10 Hyperlipemia E78.5 Assessment & Plan Assessment & Plan (1) DM (diabetes mellitus): Comment: Pneumovax 12/2024 Code(s): E11.9 - Type 2 diabetes mellitus without complications Category: Medical Plan: A1c is 6.5, ADA diet increase physical activity discussed with the patient follow-up in 3 months with a fasting labs before (2) HTN (hypertension): Code(s): I10 - Essential (primary) hypertension Category: Medical Plan: Continue olmesartan (3) Hyperlipemia: Code(s): E78.5 - Hyperlipidemia, unspecified Category: Medical Plan: Continue statin follow-up in 3 months with a fasting labs before Orders: Orders Hemoglobin A1c 3 Months E11.9 - Type 2 diabetes mellitus without complications, E78.5 - Hyperlipidemia, unspecified, I10 - Essential (primary) hypertension Lipid Panel 3 Months E11.9 - Type 2 diabetes mellitus without complications, E78.5 - Hyperlipidemia, unspecified, I10 - Essential (primary) hypertension Microalbumin, Random (w Creat) 3 Months E11.9 - Type 2 diabetes mellitus without complications, E78.5 - Hyperlipidemia, unspecified, I10 - Essential (primary) hypertension Comprehensive Ava. Panel Fast 3 Months E11.9 - Type 2 diabetes mellitus without complications, E78.5 - Hyperlipidemia, unspecified, I10 - Essential (primary) hypertension Complete Blood Count Auto Diff 3 Months E11.9 - Type 2 diabetes mellitus without complications, E78.5 - Hyperlipidemia, unspecified, I10 - Essential (primary) hypertension Medications: New 2 Jardiance (empagliflozin) 10 mg PO DAILY 90 tabs 1RF NS Refilled olmesartan 15 mg (3 x 5 mg) PO DAILY 270 tabs 2RF 90 days
[2025-07-04 09:23] VITALS: BP 118/76; PULSE 85; RESP 18; TEMP 36.7; O2SAT 97; BMI 28.1
== END 2025-07-04 10:00 | disposition home or self-care (01) ==
LOC: HO.HMCC 09:22
PROVIDERS: PCP Internal Medicine; Visit Provider Internal Medicine
DX: E11.9 Type 2 diabetes mellitus without complications (principal); I10 Essential (primary) hypertension; E78.5 Hyperlipidemia, unspecified